=== PATIENT | male | born 1940 | race Caucasian/White ===

== ENCOUNTER 2017-07-03 07:14 | Inpatient (IN) | payer OTHER ==
[2017-07-03] VITALS (12 sets, daily range): BP systolic 113–135; BP diastolic 54–92
[~2017-07-03] VITALS: Ht 185.4 cm; Wt 88.0 kg
[~2017-07-03 07:14] MED LIST: ALLOPURINOL100 MG PO; BENTYL20 MG PO; CANASA1000 MG RC; CIPRO500 MG PO; COUMADIN3 MG PO; DIGOXIN125 MCG PO; FERROUS SULFAT325 MG PO; FINASTERIDE5 MG PO; FLAGYL250 MG PO; FLAGYL500 MG PO; FLOMAX0.4 MG PO; FUROSEMIDE20 MG PO; HUMIRA40 MG/0.8 SQ; LEVOXYL112 MCG; LOVENOX100 MG/ML SC; PENTASA500 MG PO; PREDNISONE20 MG PO; PROPRANOLOL HCL10 MG PO; PROTONIX20 MG PO; QUESTRAN PACKET4 GM PO; SIMVASTATIN20 MG PO; VANCOCIN HCL250 MG PO
[2017-07-03] MEDS ORDERED: SODIUM CHLORIDE 0.9% 500ML 500 ML IV STA ×2 (07:28→08:26)
[2017-07-03] MEDS ORDERED: ONDANSETRON HCL INJ 2 MG/ML VIAL IV STA (07:28)
[2017-07-03] MEDS ORDERED: DIATRIZOATE MEGL/DIATRIZOA SOD 30 ML BTL PO ONE (07:49)
[2017-07-03 08:24] LABS: BASOPHILS # (AUTO) 0.1 (0.0-0.1); BASOPHILS % 0.2 % (0.0-1.0); HEMATOCRIT 38.7 % (38.2-49.6); HEMOGLOBIN 13.2 g/dL (14.0-18.0); LYMPHOCYTES # (AUTO) 1.4 (1.0-3.2); LYMPHOCYTES % 3.5 % (18.0-39.1); MEAN CORPUSCULAR HEMOGLOBIN 29.8 pg (28-32); MEAN CORPUSCULAR HGB CONC 34.1 g/dL (31-35); MEAN CORPUSCULAR VOLUME 87.4 fL (81-99); MONOCYTES # (AUTO) 1.8 (0.2-0.8); MONOCYTES % 4.5 % (4.4-11.3); NEUTROPHILS # (AUTO) 35.6 (2.1-6.9); NEUTROPHILS % 89.4 % (38.7-80.0); PLATELET COUNT 180 x10e3/uL (140-360); RED BLOOD COUNT 4.43 x10e6/uL (4.3-5.7); RED CELL DISTRIBUTION WIDTH 18.1 % (11.7-14.4)
--- NOTE | 2017-07-03 08:32 | Diagnostic Imaging Report ---
PROCEDURE: CHEST SINGLE (PORTABLE) COMPARISON: None. INDICATIONS: ABDOMINAL PAIN FINDINGS: LUNGS: No consolidations or edema. Minimal bibasilar atelectasis. PLEURA: No effusions or pneumothorax. HEART \T\ MEDIASTINUM: The heart is within normal size-limits. Prominence of the aortic knob. Sternotomy wire sutures with a prosthetic aortic valve. BONES \T\ SOFT TISSUES: No acute findings. CONCLUSION: No acute thoracic abnormality. Abraham Rand D.O. Dictated by: Abraham Rand D.O. on 07/03/2017 at 8:39 Electronically approved by: Abraham Rnad D.O. on 07/03/2017 at 8:39
[2017-07-03 08:41] LABS: INR 1.54; PROTHROMBIN TIME 19.3 seconds (11.9-14.5)
[2017-07-03 08:42] LABS: PARTIAL THROMBOPLASTIN TIME 52.5 seconds (23.8-35.5)
[2017-07-03] MEDS ORDERED: LEVOFLOXACIN 750MG/D5W 150ML 150 ML IV STA (08:42)
[2017-07-03] MEDS ORDERED: METRONIDAZOLE 500MG/NS 100ML 100 ML IV STA (08:42)
--- NOTE | 2017-07-03 08:56 | Diagnostic Imaging Report ---
PROCEDURE: CT ABDOMEN AND PELVIS WITHOUT CONTRAST TECHNIQUE: The abdomen and pelvis were scanned utilizing a multidetector helical scanner from the diaphragm to the lesser trochanter without IV or oral contrast material. Coronal and sagittal multiplanar reformations were obtained. DLP: 649.5 mGy*cm COMPARISON: [facility], CT, CT ABDOMEN/PELVIS , 05/25/2015, 14:31. INDICATIONS: ABDOMEN PAIN, NAUSEA, VOMITING FINDINGS: ABSENCE OF INTRAVENOUS CONTRAST DECREASES SENSITIVITY FOR DETECTION OF FOCAL LESIONS AND VASCULAR PATHOLOGY. LOWER THORAX: Prosthetic aortic valve. Bibasilar atelectasis. HEPATOBILIARY: No focal hepatic lesions. No biliary ductal dilatation. Single calcified 1 cm gallstone. SPLEEN: No splenomegaly. PANCREAS: No focal masses or ductal dilatation. ADRENALS: No adrenal nodules. KIDNEYS/URETERS: No hydronephrosis or solid mass lesions. There are 3 tiny nonobstructing punctate right renal stones. PELVIC ORGANS/BLADDER: Prostate calcification. PERITONEUM / RETROPERITONEUM: No free air or fluid. LYMPH NODES: No lymphadenopathy. VESSELS: Aneurysmal dilatation of the distal infrarenal abdominal aorta measuring 4 cm (not significantly changed compared to the prior study). GI TRACT: Right lower quadrant ostomy with findings of a total colectomy. Sutures around a rectal stump. Dilated loops of small bowel. BONES AND SOFT TISSUES: Degenerative changes of the spine. Chronic compression deformity of L1. IMPRESSION: 1. Dilated small bowel compatible with a small bowel obstruction 2. Single calcified gallstone. 3. Nonobstructing tiny right renal stones. Abraham Rand D.O. Dictated by: Abraham Rand D.O. on 07/03/2017 at 9:03 Electronically approved by: Abraham Rand D.O. on 07/03/2017 at 9:03
[2017-07-03] MEDS ORDERED: SODIUM CHLORIDE 0.9% 1000ML 1,000 ML IV SCH (09:16)
[2017-07-03] MEDS ORDERED: VANCOMYCIN 1GM/NS 250 ML 250 ML IV STA (09:23)
[2017-07-03 09:30] LABS: POTASSIUM 4.9 mmol/L (3.5-5.1)
[2017-07-03 09:31] LABS: ALBUMIN 3.2 g/dL (3.5-5.0); ALBUMIN/GLOBULIN RATIO 0.7 (0.8-2.0); ANION GAP 20.9 mmol/L (8-16); CALCIUM 9.9 mg/dL (8.4-10.2); CREATININE, SERUM 2.68 mg/dL (0.72-1.25); MAGNESIUM 2.2 MG/DL (1.3-2.1)
[2017-07-03 09:35] LABS: CREATINE KINASE MB 3.7 ng/mL (0.00-5.00); TROPONIN I 0.025 ng/mL (0-0.300)
[2017-07-03 10:15] LABS: B-TYPE NATRIURETIC PEPTIDE2 31.3 pg/mL (0-100)
[2017-07-03 11:23] LABS: LYMPHOCYTES % (MANUAL) 1 % (19-48); MONOCYTES % (MANUAL) 1 % (3.4-9.0); NEUTROPHILS % (MANUAL) 96 % (40-74)
[2017-07-03 11:24] LABS: PLATELET ESTIMATE SLIGHTLY DECREASED; PLATELET MORPHOLOGY COMMENT NORMAL; RBC MORPHOLOGY COMMENT NORMAL
[2017-07-03] MEDS ORDERED: VANCOMYCIN 1GM/NS 250 ML 250 ML IV ONE (14:45)
[2017-07-03] MEDS: ONDANSETRON HCL INJ 2 MG/ML VIAL IV PRN (15:09)
[2017-07-03] MEDS: SODIUM CHLORIDE 0.9% 1000ML 1,000 ML IV SCH (16:49)
[2017-07-03 16:59] LABS: CREATINE KINASE MB 3.7 ng/mL (0.00-5.00); TROPONIN I 0.023 ng/mL (0-0.300)
--- NOTE | 2017-07-03 19:22 | Consultation ---
DATE OF CONSULTATION: July 03, 2017 CHIEF COMPLAINT: Abdominal pain. HISTORY OF PRESENT ILLNESS: The patient is a 76-year-old old male with a several day history of abdominal pain in the lower abdomen with intermittent vomiting without blood. The patient had history of subtotal colectomy for ulcerative with an ileostomy and he has noted decreased output from the ileostomy. No fever or chills. REVIEW OF SYSTEMS: No current chest pain or shortness of breath. PAST MEDICAL HISTORY: Significant for history ulcerative colitis, hypertension, hyperlipidemia, hypothyroidism, chronic renal insufficiency, past alcohol abuse. PAST SURGICAL HISTORY: Positive for mechanical aortic valve replacement and aortic aneurysm., ascending repair. ALLERGIES: IV CONTRAST, IODINE AND PENICILLIN. PHYSICAL EXAMINATION VITAL SIGNS: Stable. He is afebrile. He is mildly tachycardiac. Heart rate of 120. GENERAL: Patient awake, alert and in no apparent distress. HEENT: Sclerae anicteric. NECK: Supple. LUNGS: Clear. HEART: Regular rhythm with no murmurs. ABDOMEN: Mildly distended but compressible with mild guarding in the ostomy area in the right lower quadrant. No rebound tenderness. EXTREMITIES: Without cyanosis or edema. White cell count is 39,000. Hemoglobin is 13. Creatinine is 2.6 with lactic acid of 19. CT of the abdomen showed dilated loops of small bowel consistent with obstruction. Gallstone noted without gallbladder distention or wall thickening. ASSESSMENT: Abdominal pain with decreased ileostomy output with distention of the bowel on CT scan suggestive of bowel obstruction. Repeated attempt at nasogastric tube decompression, unsuccessful due to nasal blockage. PLAN: Serial abdominal x-ray and exam. IV hydration. Keep n.p.o. May attempt Fleet enema through the ileostomy to promote bowel activity. Thank you for the consultation. Job#: [id number]
[2017-07-03] MEDS ORDERED: ALBUTEROL0.63 MG/3 INH (19:44)
[2017-07-03] MEDS ORDERED: LOPERAMIDE2 MG PO (20:04)
[2017-07-03] MEDS ORDERED: SPIRIVA18 MCG INH (20:04)
[2017-07-03] MEDS ORDERED: WARFARIN SODIUM1 MG PO (20:04)
[2017-07-03] MEDS ORDERED: OYSTER SHELL C1 EACH PO (20:04)
[2017-07-03] MEDS ORDERED: POLYETHYLENE GL17 GM PO (20:04)
[2017-07-03] MEDS ORDERED: METOPROLOL SUCC25 MG PO (20:04)
[2017-07-03] MEDS ORDERED: FERROUS GLUCON324 M1 PO (20:04)
[2017-07-03] MEDS ORDERED: TRIAMCINOLONE A15 G1 TOP (20:04)
[2017-07-03] MEDS ORDERED: ACIDOPHILUS1 EAC1 PO (20:04)
[2017-07-03] MEDS ORDERED: HYDROXYZINE HCL25 MG PO (20:04)
[2017-07-03] MEDS ORDERED: ZOFRAN ODT4 MG PO (20:04)
[2017-07-03] MEDS ORDERED: LORADAMED10 MG PO (20:04)
[2017-07-03] MEDS ORDERED: THIAMINE HCL100 MG PO (20:04)
[2017-07-03] MEDS ORDERED: SYMBICORT 16010.2 GM INH (20:04)
[2017-07-04] VITALS (34 sets, daily range): BP systolic 117–142; BP diastolic 60–98
[2017-07-04] MEDS: CEFTRIAXONE SOD 1 GM in WATER STERILE 10ML VIAL 10 ML IV SCH ×2 (01:18→23:47)
[2017-07-04] MEDS: METRONIDAZOLE 500MG/NS 100ML 100 ML IV SCH ×4 (01:18→21:40)
[2017-07-04] MEDS: SODIUM CHLORIDE 0.9% 1000ML 1,000 ML IV SCH ×3 (01:18→21:40)
[2017-07-04] MEDS: VANCOMYCIN 250MG/5ML ORAL SOLN PO SCH ×4 (01:18→21:40)
[2017-07-04] MEDS: ONDANSETRON HCL INJ 2 MG/ML VIAL IV PRN (05:16)
[2017-07-04] MEDS: LEVOTHYROXINE SODIUM 112 MCG TAB PO SCH (05:16)
[2017-07-04 06:10] LABS: BILIRUBIN,URINE NEGATIVE (NEGATIVE); KETONES,URINE NEGATIVE (NEGATIVE); LEUKOCYTE ESTERASE ,URINE 2+ (NEGATIVE); NITRITE,URINE NEGATIVE (NEGATIVE); URINE UROBILINOGEN 0.2 mg/dL (0.2 - 1)
[2017-07-04 06:11] LABS: BASOPHILS # (AUTO) 0.1 (0.0-0.1); BASOPHILS % 0.2 % (0.0-1.0); LYMPHOCYTES # (AUTO) 1.4 (1.0-3.2); LYMPHOCYTES % 4.6 % (18.0-39.1); MEAN CORPUSCULAR HEMOGLOBIN 30.2 pg (28-32); MEAN CORPUSCULAR HGB CONC 33.3 g/dL (31-35); MEAN CORPUSCULAR VOLUME 90.5 fL (81-99); MONOCYTES # (AUTO) 1.3 (0.2-0.8); MONOCYTES % 4.3 % (4.4-11.3); NEUTROPHILS % 89.1 % (38.7-80.0); PLATELET COUNT 161 x10e3/uL (140-360); RED BLOOD COUNT 3.98 x10e6/uL (4.3-5.7); RED CELL DISTRIBUTION WIDTH 17.8 % (11.7-14.4)
--- NOTE | 2017-07-04 06:12 | Diagnostic Imaging Report ---
EXAM: ABDOMEN-1VIEW (KUB) DATE: 07/04/2017 7:00 AM Time stamp on exam: 5:26 AM INDICATION: Small bowel obstruction COMPARISON: CT of the abdomen and pelvis on 07/03/2017 FINDINGS: LINES/TUBES: None BOWEL PATTERN: Multiple dilated loops of bowel are noted throughout the mid abdomen left greater than right SOFT TISSUES: Abnormal calcification in the right upper quadrant may be gallstones LUNG BASES: Lung bases are clear BONES: Degenerative changes of the thoracolumbar spine. IMPRESSION: Findings are suspicious for ileus versus developing small bowel obstruction. Signed by: Dr. Quoc Aguilar M.D. on 07/04/2017 6:08 AM
[2017-07-04 06:13] LABS: CLARITY,URINE CLOUDY (CLEAR); COLOR,URINE YELLOW (YELLOW); PROTEIN,URINE DIPSTICK 1+ (NEGATIVE)
[2017-07-04 06:23] LABS: BACTERIA,URINE FEW /HPF; EPITHELIAL CELLS,URINE RARE /LPF; WBC,URINE (MAN) 21-50 /HPF (0-5)
[2017-07-04 06:35] LABS: ANION GAP 14.9 mmol/L (8-16); CALCIUM 9.2 mg/dL (8.4-10.2); CREATININE, SERUM 1.85 mg/dL (0.72-1.25); POTASSIUM 4.9 mmol/L (3.5-5.1)
[2017-07-04 06:55] LABS: CREATINE KINASE MB 3.6 ng/mL (0.00-5.00); THYROID STIMULATING HORMONE 2.621 uIU/mL (0.350-4.940); TROPONIN I 0.028 ng/mL (0-0.300)
[2017-07-04 07:27] LABS: MONOCYTES % (MANUAL) 1 % (3.4-9.0); NEUTROPHILS % (MANUAL) 95 % (40-74)
[2017-07-04 07:28] LABS: PLATELET ESTIMATE SLIGHTLY DECREASED; PLATELET MORPHOLOGY COMMENT NORMAL; RBC MORPHOLOGY COMMENT NORMAL
[2017-07-04] MEDS ORDERED: ENOXAPARIN SOD INJ 40 MG/0.4 ML SYR SC SCH (09:15)
[2017-07-04] MEDS: METOPROLOL SUCCINATE 25 MG TAB XL PO SCH (09:22)
--- NOTE | 2017-07-04 09:39 | Progress Note ---
DATE: July 04, 2017 SUBJECTIVE: NG was placed by Dr. Gruber today. Patient denies any significant abdominal pain. He is more alert, awake and coherent this morning. REVIEW OF SYSTEMS GENERAL: No fever or chills. CV: Denies any chest pain or palpitations. RESPIRATORY: Denies any cough or expectoration. MEDICATIONS: MAR reviewed. PHYSICAL EXAMINATION VITAL SIGNS: Temperature 97.3, pulse 112-113, respirations 18, blood pressure 134/86 to 126/91, oxygen saturation 96% on 4 L of nasal cannula. GENERAL: Not in any apparent distress. More alert and awake today. HEENT: Moist mucous membranes. Anicteric sclerae. CV: S1 and S2 regular with a mechanical mitral valve click. LUNGS: Bilaterally grossly clear. ABDOMEN: Soft. No air or any fecal fluid in the ileostomy. Tinkling scattered bowel sounds. No rebound, rigidity or guarding. LABS: WBC has come down to 30.36, hemoglobin 12, hematocrit 36, and platelet count 161,000. Urinalysis is positive for UTI. Abdominal x-ray done today prior to NG placement showed dilated small bowel loop concerning for small bowel obstruction versus ileus. IMPRESSION 1. Small-bowel obstruction. 2. Urinalysis is positive for urinary tract infection: Urine culture as well as blood culture are pending. The patient is on intravenous ceftriaxone. I spoke to the Dr. Gruber. He is not planning to operate on this patient. Therefore, the patient will be managed conservatively for small-bowel obstruction. If there is no plan of operating on this patient, then warfarin should be resumed. Given mechanical mitral valve, he is at high risk for thromboembolic phenomenon. Discussed with Dr. Montalvo. Job#: [id number] [place]
[2017-07-04] MEDS: FINASTERIDE 5 MG TAB PO SCH (09:52)
[2017-07-04] MEDS: ENOXAPARIN INJ 80 MG/0.8 ML SYR SC SCH ×2 (09:52→21:40)
[2017-07-04] MEDS: FUROSEMIDE 20 MG TAB PO SCH ×2 (09:52→17:33)
[2017-07-04] MEDS: ALLOPURINOL 100 MG TAB PO SCH (09:52)
[2017-07-04] MEDS: LORATADINE 10 MG TAB PO SCH (09:52)
[2017-07-04] MEDS: THIAMINE HCL 100 MG TAB PO SCH (09:52)
--- NOTE | 2017-07-04 10:30 | Diagnostic Imaging Report ---
PROCEDURE:X-RAY ABDOMEN - KUB COMPARISON:Abdomen one view 07/04/2017. INDICATIONS:NG TUBE PLACEMENT FINDINGS: Limited examination. Enteric feeding catheter is present with the tip projecting over the expected region of the mid gastric body. Multiple partially visualized distended loops of small bowel are present. CONCLUSION: Small bowel obstruction. Limited evaluation. Dictated by: Abilio Brasher M.D. on 07/04/2017 at 10:37 Electronically approved by: Abilio Brasher M.D. on 07/04/2017 at 10:37
--- NOTE | 2017-07-04 10:54 | Consultation ---
DATE OF CONSULTATION: July 03, 2017 GASTROENTEROLOGY CONSULT REASON FOR CONSULT: Small-bowel obstruction. HISTORY OF PRESENTING ILLNESS: A 76-year-old male from [facility], who is presently very confused and delirious. Therefore, I cannot derive any history directly from the patient. Most of my information is derived from the medical chart, as well as interaction with the nurse at the bedside. GI has been consulted to evaluate him for small-bowel obstruction. Patient presented with abdominal pain. He had a total colectomy for ulcerative colitis, which was initially diagnosed many years ago. He has an ileostomy. CT scan done in the emergency room showed dilated small bowel loops compatible with a small-bowel obstruction. His blood work also revealed leukocytosis with a left shift. White count was noted at 39.81 with 89% of neutrophils. He subsequently got admitted through the emergency room directly into the ICU for underlying sepsis, as well as small-bowel obstruction. REVIEW OF SYSTEMS: Unobtainable. Per the chart, symptomatology is limited to GI system. PAST MEDICAL HISTORY: History of ritter ulcerative colitis, hypertension, hyperlipidemia, hypothyroidism, CKD, past alcohol use. PAST SURGICAL HISTORY: Ascending aortic aneurysm, mechanical aortic valve. FAMILY HISTORY: Noncontributory. SOCIAL HISTORY: No smoking, alcohol or any illicit drug use. He lives in [facility]. ALLERGIES: IV CONTRAST, IODINE AND PENICILLIN. MEDICATIONS: Inpatient medications reviewed as per MAR. Patient was on warfarin at the group home. PHYSICAL EXAMINATION VITAL SIGNS: Temperature 97.3, pulse 112 to 108, respirations 18, blood pressure 134/86, oxygen saturation 96% on room air. GENERAL: Delirious, confused and lethargic and incoherent. HEENT: Moist mucous membranes. Anicteric sclerae. No neck or axillary adenopathy. CV: S1 and S2 regular with a mechanical mitral valve click. LUNGS: Bilaterally grossly clear. ABDOMEN: Soft. Mild upper quadrant distention. No rebound, rigidity or guarding. Bowel sounds are slightly hyperactive. EXTREMITIES: Warm. No leg edema. LABS: WBC 39.81, hemoglobin 13.2, hematocrit 38.7, MCV 87.4, and platelet count 180,000. Sodium 136, potassium 4.9, chloride 104, bicarb 22, BUN 55, creatinine 1.85. LFTs normal. Liver function tests normal. CT of the abdomen and pelvis without IV or oral contrast showed dilated small bowel compatible with a small-bowel obstruction. Single calcified gallstone. Nonobstructing tiny renal stone. No free air or fluid. IMPRESSION 1. Small-bowel obstruction in a patient with pancolectomy secondary to ulcerative colitis. 2. Leukocytosis due to underlying sepsis. PLAN: Attempt was made to put in an NG tube in the emergency room and failed. Surgery has been consulted. He will be kept n.p.o. IV fluids. Serial abdominal exam. Recommend putting NG tube by IR under fluoroscopy. If NG tube gets placed, then it should be put to low to intermittent wall suction. Regarding sepsis, blood culture has been drawn. Chest x-ray negative. However, no urinalysis done. Therefore, recommend to do a straight cath to obtain urine sample. Patient is currently getting IV metronidazole, IV vancomycin along with IV ceftriaxone. If urinalysis positive for UTI, then recommend to discontinue vancomycin, as well as metronidazole. I thank Dr. Montalvo for allowing me to participate in the care of this patient. Job#: [id number] [place]
[2017-07-04] MEDS ORDERED: TAMSULOSIN HCL 0.4 MG CAP PO SCH (16:30)
[2017-07-04] MEDS: TIOTROPIUM 18 MCG INH POWDER INH SCH ×2 (17:33)
[2017-07-04] MEDS ORDERED: ENOXAPARIN INJ 80 MG/0.8 ML SYR SC SCH (21:00)
[2017-07-05] VITALS (31 sets, daily range): BP systolic 109–151; BP diastolic 66–88
[2017-07-05 06:01] LABS: BASOPHILS % 0.2 % (0.0-1.0); EOSINOPHILS % 0.1 % (0.0-6.0); HEMATOCRIT 33.1 % (38.2-49.6); HEMOGLOBIN 11.1 g/dL (14.0-18.0); LYMPHOCYTES # (AUTO) 1.2 (1.0-3.2); LYMPHOCYTES % 6.8 % (18.0-39.1); MEAN CORPUSCULAR HGB CONC 33.5 g/dL (31-35); MEAN CORPUSCULAR VOLUME 89.5 fL (81-99); MONOCYTES % 5.6 % (4.4-11.3); NEUTROPHILS % 85.9 % (38.7-80.0); PLATELET COUNT 142 x10e3/uL (140-360); RED CELL DISTRIBUTION WIDTH 17.5 % (11.7-14.4)
[2017-07-05] MEDS: VANCOMYCIN 250MG/5ML ORAL SOLN PO SCH ×2 (06:13→14:00)
[2017-07-05] MEDS: METRONIDAZOLE 500MG/NS 100ML 100 ML IV SCH ×2 (06:13→14:00)
[2017-07-05] MEDS: LEVOTHYROXINE SODIUM 112 MCG TAB PO SCH (06:13)
[2017-07-05 06:20] LABS: ANION GAP 12.5 mmol/L (8-16); BLOOD UREA NITROGEN 42 mg/dL (7-26); BUN/CREATININE RATIO 39 (6-25); CALCIUM 8.5 mg/dL (8.4-10.2); CARBON DIOXIDE 19 mmol/L (22-29); CHLORIDE 111 mmol/L (98-107); CREATININE, SERUM 1.09 mg/dL (0.72-1.25); EST GLOMERULAR FILTRATION RATE > 60 ML/MIN (60-); GLUCOSE 90 mg/dL (74-118); POTASSIUM 3.5 mmol/L (3.5-5.1); SODIUM 139 mmol/L (136-145)
--- NOTE | 2017-07-05 07:11 | Diagnostic Imaging Report ---
JERRY , July 05, 2017 Clinical history: Small bowel obstruction Technique: AP view abdomen Comparison: CT abdomen July 03 2017; abdomen 1 view July 04, 2017 Findings: See impression. Impression: 1. No interval change in diffuse small bowel distention consistent with ileus/obstruction. 2. Nasogastric tube tip at the gastric antrum or 1st portion of the duodenum. This report was generated with voice-recognition technology. Errors in facilities painter can occur. Please interpret accordingly and contact a radiologist if there are any questions regarding the report. Signed by: Dr. Marbin Turk M.D. on 07/05/2017 7:07 AM
[2017-07-05] MEDS: SODIUM CHLORIDE 0.9% 1000ML 1,000 ML IV SCH (09:39)
[2017-07-05] MEDS: LORATADINE 10 MG TAB PO SCH (09:39)
[2017-07-05] MEDS: FUROSEMIDE 20 MG TAB PO SCH (09:39)
[2017-07-05] MEDS: FINASTERIDE 5 MG TAB PO SCH (09:40)
[2017-07-05] MEDS: METOPROLOL SUCCINATE 25 MG TAB XL PO SCH (09:40)
[2017-07-05] MEDS: THIAMINE HCL 100 MG TAB PO SCH (09:40)
[2017-07-05] MEDS: ALLOPURINOL 100 MG TAB PO SCH (09:40)
[2017-07-05] MEDS: ENOXAPARIN INJ 80 MG/0.8 ML SYR SC SCH ×2 (09:41→21:09)
--- NOTE | 2017-07-05 18:52 | Progress Note ---
DATE: July 05, 2017 SUBJECTIVE: The patient reports no abdominal pain. No nausea, vomiting. NG tube is draining bile. REVIEW OF SYSTEMS: GENERAL: No fever or chills. CVS: No chest pain or palpitations. RESPIRATORY: No cough or expectoration. MEDICATIONS: Reviewed, MAR. The patient is getting intravenous metronidazole, ceftriaxone, and oral vancomycin. OBJECTIVE VITAL SIGNS: Temperature 96.5, pulse ranging from 110-114, respirations 16, blood pressure 132/83 to 146/87. Oxygen saturation 92% on room air. GENERAL: Lethargic, drowsy. HEENT: Moist mucous membranes. Anicteric sclerae. CVS: S1 and S2, regular. With prosthetic mitral valve click. LUNGS: Bilaterally grossly clear. ABDOMEN: Mild gaseous distention. Ileostomy bag with minimal gas and very small amount of fecal fluid. Tingling bowel sounds. No other palpable masses or hernia. LABORATORY DATA: WBC has come down to 17.47, hemoglobin 11.1, hematocrit 33.1, platelet count 142, sodium 139, potassium 3.5, chloride 111, bicarb 19, BUN 42, creatinine 1.09. Urine culture pending. Blood culture no growth in 48 hours. Abdominal x-ray done today showed diffuse small bowel distention consistent with ileus/obstruction. NG tube tip at the gastric antrum or the 1st portion of the duodenum. IMPRESSION: 1. Small bowel obstruction continues to persist. 2. Urinary tract infection, urine culture is pending. The patient is on ceftriaxone. White count is down. PLAN: Surgery is following the patient. Will continue serial abdominal x-ray. Taking the liberty to discontinue metronidazole as well as oral vancomycin. I do not think that we are dealing here with any C. difficile. Follow the urine culture and adjust the antibiotic accordingly. The patient is being given Lovenox for prosthetic mitral valve in anticipation that in case the patient gets surgery then Lovenox will have to be held for 12 hours. The patient was on warfarin at home. The last INR check was 1.54 on 07/03/17. Job#: [id number] [place] MTDD
[2017-07-05] MEDS: POTASSIUM CHL 40 MEQ in DEXTROSE 5%/0.45% SOD CHL 1,000 ML IV SCH (19:30)
[2017-07-05] MEDS: TIOTROPIUM 18 MCG INH POWDER INH SCH (21:08)
[2017-07-06] VITALS (41 sets, daily range): BP systolic 108–143; BP diastolic 57–84
[2017-07-06] MEDS: CEFTRIAXONE SOD 1 GM in WATER STERILE 10ML VIAL 10 ML IV SCH (01:45)
--- NOTE | 2017-07-06 04:27 | Diagnostic Imaging Report ---
EXAM: ABDOMEN-1VIEW (KUB) DATE: 07/06/2017 7:00 AM Time stamp on exam: 3:34 AM INDICATION: Small bowel obstruction COMPARISON: 07/05/2017 FINDINGS: LINES/TUBES: NG tube is stable in good position BOWEL PATTERN: Persistent dilatation of multiple small bowel loops throughout the abdomen measuring up to 4.6 cm in diameter SOFT TISSUES: Right upper quadrant calcification compatible with gallstone. LUNG BASES: Lung bases are clear. BONES: No acute findings. IMPRESSION: 1. Persistent dilatation of the small bowel loops in keeping with small bowel obstruction Signed by: Dr. Quoc Aguilar M.D. on 07/06/2017 4:23 AM
[2017-07-06] MEDS: POTASSIUM CHL 40 MEQ in DEXTROSE 5%/0.45% SOD CHL 1,000 ML IV SCH ×2 (04:48→15:14)
[2017-07-06 06:06] LABS: BASOPHILS # (AUTO) 0.1 (0.0-0.1); BASOPHILS % 0.4 % (0.0-1.0); EOSINOPHILS % 0.3 % (0.0-6.0); HEMATOCRIT 34.6 % (38.2-49.6); HEMOGLOBIN 11.2 g/dL (14.0-18.0); LYMPHOCYTES # (AUTO) 1.4 (1.0-3.2); LYMPHOCYTES % 11.7 % (18.0-39.1); MEAN CORPUSCULAR HEMOGLOBIN 29.6 pg (28-32); MEAN CORPUSCULAR HGB CONC 32.4 g/dL (31-35); MEAN CORPUSCULAR VOLUME 91.3 fL (81-99); MONOCYTES % 8.2 % (4.4-11.3); NEUTROPHILS # (AUTO) 9.3 (2.1-6.9); NEUTROPHILS % 77.1 % (38.7-80.0); PLATELET COUNT 136 x10e3/uL (140-360); RED BLOOD COUNT 3.79 x10e6/uL (4.3-5.7); RED CELL DISTRIBUTION WIDTH 17.7 % (11.7-14.4)
[2017-07-06 06:25] LABS: ANION GAP 10.7 mmol/L (8-16); BLOOD UREA NITROGEN 32 mg/dL (7-26); BUN/CREATININE RATIO 30 (6-25); CALCIUM 8.6 mg/dL (8.4-10.2); CARBON DIOXIDE 24 mmol/L (22-29); CHLORIDE 111 mmol/L (98-107); CREATININE, SERUM 1.08 mg/dL (0.72-1.25); EST GLOMERULAR FILTRATION RATE > 60 ML/MIN (60-); GLUCOSE 119 mg/dL (74-118); MAGNESIUM 1.6 MG/DL (1.3-2.1); PHOSPHORUS 1.6 MG/DL (2.3-4.7); POTASSIUM 3.7 mmol/L (3.5-5.1); SODIUM 142 mmol/L (136-145)
[2017-07-06] MEDS: THIAMINE HCL INJ 100 MG/ML 2ML VIAL IV SCH (09:00)
[2017-07-06] MEDS: ENOXAPARIN INJ 80 MG/0.8 ML SYR SC SCH ×2 (09:00→21:45)
[2017-07-06] MEDS: LEVOTHYROXINE SODIUM 100 MCG/VIAL IV SCH (09:00)
[2017-07-06] MEDS: TIOTROPIUM 18 MCG INH POWDER INH SCH (09:00)
[2017-07-06] MEDS ORDERED: MAGNESIUM SULFATE 2GM/50ML 50 ML IV ONE ×3 (10:00→16:00)
[2017-07-06] MEDS ORDERED: POTASSIUM PHOSPHATE 20 MM in SODIUM CHLORIDE 0.9% 250ML 250 ML IV ONE (10:30)
[2017-07-06 12:24] LABS: EOSINOPHILS % (MANUAL) 1 % (0-7); LYMPHOCYTES % (MANUAL) 15 % (19-48); METAMYELOCYTES % (MANUAL) 1 % (0-0); MONOCYTES % (MANUAL) 5 % (3.4-9.0); NEUTROPHILS % (MANUAL) 78 % (40-74)
[2017-07-06 12:26] LABS: PLATELET ESTIMATE SLIGHTLY DECREASED; PLATELET MORPHOLOGY COMMENT FEW LARGE
[2017-07-06 12:28] LABS: RBC MORPHOLOGY COMMENT NORMAL
[2017-07-06] MEDS: METOPROLOL TARTRATE INJ 1 MG/ML VIAL IV SCH ×2 (14:00→21:45)
[2017-07-06] MEDS: MORPHINE SULFATE 2 MG/ML SYR IV PRN ×2 (23:00→23:15)
[2017-07-07] VITALS (24 sets, daily range): BP systolic 104–144; BP diastolic 60–78
[2017-07-07] MEDS: CEFTRIAXONE SOD 1 GM in WATER STERILE 10ML VIAL 10 ML IV SCH (02:10)
[2017-07-07] MEDS: POTASSIUM CHL 40 MEQ in DEXTROSE 5%/0.45% SOD CHL 1,000 ML IV SCH ×2 (06:08→16:30)
[2017-07-07] MEDS: METOPROLOL TARTRATE INJ 1 MG/ML VIAL IV SCH ×3 (06:09→22:00)
[2017-07-07] MEDS: MORPHINE SULFATE 2 MG/ML SYR IV PRN ×3 (06:10→23:30)
--- NOTE | 2017-07-07 06:25 | Diagnostic Imaging Report ---
EXAM: ABDOMEN-1VIEW (KUB) DATE: 07/07/2017 6:00 AM Time stamp on exam: 5:27 AM INDICATION: Small bowel obstruction COMPARISON: 07/06/2017 FINDINGS: LINES/TUBES: None BOWEL PATTERN: Interval improvement in extension and diameter of the small bowel dilatation. Findings are still compatible with small bowel obstruction/ileus SOFT TISSUES: No abnormal calcifications. No mass effect. LUNG BASES: Not included BONES: No acute findings. IMPRESSION: Mild interval improvement in small bowel dilatation. Still compatible with small bowel obstruction/ileus Signed by: Dr. Quoc Aguilar M.D. on 07/07/2017 6:22 AM
[2017-07-07 06:30] LABS: BASOPHILS # (AUTO) 0.1 (0.0-0.1); BASOPHILS % 0.4 % (0.0-1.0); EOSINOPHILS # (AUTO) 0.1 (0.0-0.4); EOSINOPHILS % 1.1 % (0.0-6.0); HEMATOCRIT 35.2 % (38.2-49.6); HEMOGLOBIN 11.1 g/dL (14.0-18.0); LYMPHOCYTES # (AUTO) 1.9 (1.0-3.2); LYMPHOCYTES % 16.4 % (18.0-39.1); MEAN CORPUSCULAR HEMOGLOBIN 29.2 pg (28-32); MEAN CORPUSCULAR HGB CONC 31.5 g/dL (31-35); MEAN CORPUSCULAR VOLUME 92.6 fL (81-99); MONOCYTES # (AUTO) 0.8 (0.2-0.8); MONOCYTES % 6.6 % (4.4-11.3); NEUTROPHILS # (AUTO) 8.3 (2.1-6.9); NEUTROPHILS % 72.4 % (38.7-80.0); PLATELET COUNT 149 x10e3/uL (140-360); RED CELL DISTRIBUTION WIDTH 17.5 % (11.7-14.4)
[2017-07-07 07:07] LABS: ANION GAP 10.9 mmol/L (8-16); BLOOD UREA NITROGEN 22 mg/dL (7-26); BUN/CREATININE RATIO 23 (6-25); CALCIUM 8.6 mg/dL (8.4-10.2); CARBON DIOXIDE 26 mmol/L (22-29); CHLORIDE 110 mmol/L (98-107); CREATININE, SERUM 0.97 mg/dL (0.72-1.25); EST GLOMERULAR FILTRATION RATE > 60 ML/MIN (60-); GLUCOSE 123 mg/dL (74-118); POTASSIUM 3.9 mmol/L (3.5-5.1); SODIUM 143 mmol/L (136-145)
[2017-07-07] MEDS: ENOXAPARIN INJ 80 MG/0.8 ML SYR SC SCH ×2 (09:00→22:27)
[2017-07-07] MEDS: THIAMINE HCL INJ 100 MG/ML 2ML VIAL IV SCH (09:00)
[2017-07-07] MEDS: LEVOTHYROXINE SODIUM 100 MCG/VIAL IV SCH (09:00)
[2017-07-07 10:25] LABS: BAND NEUTROPHILS % (MANUAL) 1 %; EOSINOPHILS % (MANUAL) 2 % (0-7); LYMPHOCYTES % (MANUAL) 18 % (19-48); MONOCYTES % (MANUAL) 7 % (3.4-9.0); NEUTROPHILS % (MANUAL) 72 % (40-74); RBC MORPHOLOGY COMMENT NORMAL
[2017-07-07 10:26] LABS: PLATELET ESTIMATE ADEQUATE; PLATELET MORPHOLOGY COMMENT NORMAL
[2017-07-07] MEDS: TIOTROPIUM 18 MCG INH POWDER INH SCH (11:20)
[2017-07-08] VITALS (20 sets, daily range): BP systolic 93–128; BP diastolic 61–83
[2017-07-08] MEDS: CEFTRIAXONE SOD 1 GM in WATER STERILE 10ML VIAL 10 ML IV SCH (00:17)
[2017-07-08] MEDS: POTASSIUM CHL 40 MEQ in DEXTROSE 5%/0.45% SOD CHL 1,000 ML IV SCH (00:48)
[2017-07-08] MEDS: MORPHINE SULFATE 2 MG/ML SYR IV PRN ×2 (04:12→07:18)
[2017-07-08] MEDS: METOPROLOL TARTRATE INJ 1 MG/ML VIAL IV SCH ×3 (06:00→21:34)
[2017-07-08 06:36] LABS: BASOPHILS % 0.3 % (0.0-1.0); EOSINOPHILS # (AUTO) 0.2 (0.0-0.4); EOSINOPHILS % 1.1 % (0.0-6.0); HEMATOCRIT 32.4 % (38.2-49.6); HEMOGLOBIN 10.3 g/dL (14.0-18.0); LYMPHOCYTES # (AUTO) 1.7 (1.0-3.2); LYMPHOCYTES % 12.1 % (18.0-39.1); MEAN CORPUSCULAR HEMOGLOBIN 29.3 pg (28-32); MEAN CORPUSCULAR HGB CONC 31.8 g/dL (31-35); MEAN CORPUSCULAR VOLUME 92.3 fL (81-99); MONOCYTES # (AUTO) 0.9 (0.2-0.8); MONOCYTES % 6.2 % (4.4-11.3); NEUTROPHILS # (AUTO) 11.1 (2.1-6.9); NEUTROPHILS % 77.8 % (38.7-80.0); PLATELET COUNT 149 x10e3/uL (140-360); RED BLOOD COUNT 3.51 x10e6/uL (4.3-5.7); RED CELL DISTRIBUTION WIDTH 17.3 % (11.7-14.4)
[2017-07-08 06:59] LABS: ANION GAP 8.5 mmol/L (8-16); BLOOD UREA NITROGEN 16 mg/dL (7-26); BUN/CREATININE RATIO 18 (6-25); CALCIUM 8.3 mg/dL (8.4-10.2); CARBON DIOXIDE 24 mmol/L (22-29); CHLORIDE 107 mmol/L (98-107); CREATININE, SERUM 0.88 mg/dL (0.72-1.25); EST GLOMERULAR FILTRATION RATE > 60 ML/MIN (60-); GLUCOSE 121 mg/dL (74-118); POTASSIUM 4.5 mmol/L (3.5-5.1); SODIUM 135 mmol/L (136-145)
[2017-07-08] MEDS: LEVOTHYROXINE SODIUM 100 MCG/VIAL IV SCH (09:00)
[2017-07-08] MEDS: TIOTROPIUM 18 MCG INH POWDER INH SCH (09:00)
[2017-07-08] MEDS: ENOXAPARIN INJ 80 MG/0.8 ML SYR SC SCH ×2 (09:32→21:36)
[2017-07-08] MEDS: THIAMINE HCL INJ 100 MG/ML 2ML VIAL IV SCH (09:32)
[2017-07-08] MEDS ORDERED: MORPHINE SULFATE 2 MG/ML SYR IV PRN (09:45)
[2017-07-08] MEDS: ONDANSETRON HCL INJ 2 MG/ML VIAL IV PRN (14:00)
[2017-07-08] MEDS: D5.45%NS/KCL 20MEQ 1,000 ML IV SCH ×2 (15:29→21:36)
[2017-07-09] VITALS (20 sets, daily range): BP systolic 75–120; BP diastolic 60–88
[2017-07-09] MEDS: CEFTRIAXONE SOD 1 GM in WATER STERILE 10ML VIAL 10 ML IV SCH (01:00)
--- NOTE | 2017-07-09 05:56 | Diagnostic Imaging Report ---
EXAM: ABDOMEN-1VIEW (KUB), portable supine DATE: 07/09/2017 5:00 AM Time stamp on exam: For 24 hours INDICATION: Obstruction COMPARISON: July 07, 2017 FINDINGS: Nasogastric tube terminates in expected location of the antrum of the stomach Persistent dilated loops of small bowel IMPRESSION: Persistent findings of small bowel obstruction versus ileus. Signed by: Dr. Elisa Cota M.D. on 07/09/2017 5:53 AM
[2017-07-09 05:57] LABS: BASOPHILS # (AUTO) 0.1 (0.0-0.1); BASOPHILS % 0.4 % (0.0-1.0); EOSINOPHILS # (AUTO) 0.1 (0.0-0.4); EOSINOPHILS % 0.8 % (0.0-6.0); HEMATOCRIT 34.2 % (38.2-49.6); HEMOGLOBIN 10.9 g/dL (14.0-18.0); LYMPHOCYTES # (AUTO) 1.8 (1.0-3.2); LYMPHOCYTES % 13.1 % (18.0-39.1); MEAN CORPUSCULAR HEMOGLOBIN 29.5 pg (28-32); MEAN CORPUSCULAR HGB CONC 31.9 g/dL (31-35); MEAN CORPUSCULAR VOLUME 92.4 fL (81-99); MONOCYTES % 7.6 % (4.4-11.3); NEUTROPHILS # (AUTO) 10.2 (2.1-6.9); NEUTROPHILS % 76.4 % (38.7-80.0); PLATELET COUNT 189 x10e3/uL (140-360); RED CELL DISTRIBUTION WIDTH 16.8 % (11.7-14.4)
[2017-07-09] MEDS: METOPROLOL TARTRATE INJ 1 MG/ML VIAL IV SCH ×3 (06:00→21:41)
[2017-07-09] MEDS: D5.45%NS/KCL 20MEQ 1,000 ML IV SCH ×2 (06:15→14:00)
[2017-07-09 06:17] LABS: ANION GAP 12.1 mmol/L (8-16); BLOOD UREA NITROGEN 17 mg/dL (7-26); BUN/CREATININE RATIO 15 (6-25); CALCIUM 8.8 mg/dL (8.4-10.2); CARBON DIOXIDE 28 mmol/L (22-29); CHLORIDE 102 mmol/L (98-107); EST GLOMERULAR FILTRATION RATE > 60 ML/MIN (60-); GLUCOSE 132 mg/dL (74-118); POTASSIUM 5.1 mmol/L (3.5-5.1); SODIUM 137 mmol/L (136-145)
[2017-07-09] MEDS: TIOTROPIUM 18 MCG INH POWDER INH SCH ×2 (07:55→09:31)
[2017-07-09] MEDS: LEVOTHYROXINE SODIUM 100 MCG/VIAL IV SCH (09:31)
[2017-07-09] MEDS: THIAMINE HCL INJ 100 MG/ML 2ML VIAL IV SCH (09:31)
[2017-07-09] MEDS: ENOXAPARIN INJ 80 MG/0.8 ML SYR SC SCH ×2 (09:31→21:41)
[2017-07-09] MEDS ORDERED: DIATRIZOATE MEGL/DIATRIZOA SOD 30 ML BTL PO ONE (09:51)
[2017-07-09] MEDS ORDERED: FUROSEMIDE INJ 10 MG/ML 4 ML VIAL IV ONE (10:40)
--- NOTE | 2017-07-09 17:15 | Diagnostic Imaging Report ---
PROCEDURE: CT ABDOMEN AND PELVIS WITHOUT CONTRAST TECHNIQUE: The abdomen and pelvis were scanned utilizing a multidetector helical scanner from the diaphragm to the lesser trochanter after the oral administration of Gastrografin. No IV contrast was administered per physician's request. Coronal and sagittal multiplanar reformations were obtained. COMPARISON: [facility], CT, CT ABDOMEN/PELVIS , 07/03/2017, 7:47. INDICATIONS: SMALL BOWEL OBSTRUCTION FINDINGS: ABSENCE OF INTRAVENOUS CONTRAST DECREASES SENSITIVITY FOR DETECTION OF FOCAL LESIONS AND VASCULAR PATHOLOGY. LOWER THORAX: Worsening atelectatic changes in the dependent portion of the posterior right lower lobe. Stable mild atelectatic changes in the left lower lobe. Partially visualized prosthetic aortic valve. Enteric tube in place, with distal tip in the stomach antrum. HEPATOBILIARY: No focal hepatic lesions. No biliary ductal dilatation. Stable 1.1 cm calcified stone in the gallbladder lumen. No wall thickening or pericholecystic fluid. SPLEEN: No splenomegaly. PANCREAS: No ductal dilation or focal lesions. There are scattered punctate calcifications in the pancreatic head (for example series 2 image 34) and tail (series 2 image 27). Mild to moderate pancreatic atrophy. ADRENALS: Stable 1.0 x 0.9 cm nodule in the left adrenal gland (series 2, image 25). Right adrenal gland is unremarkable. KIDNEYS/URETERS: Stable punctate nonobstructing calculi in the right kidney (series 2, images 29, 31 and 32 and coronal images 63, 66 and 68). No left renal or any ureteral calculi. No hydronephrosis or obstruction. No renal contour abnormalities. PELVIC ORGANS/BLADDER: Bladder is decompressed and there is a Hernandez catheter in place. PERITONEUM / RETROPERITONEUM: No interval change in approximately 4.0 x 3.8 x 3.6 cm hypodense fluid collection in the posterior pelvis at the presacral space (series 2, image 77 and sagittal image 72). There is mild surrounding stranding. No free air. LYMPH NODES: No lymphadenopathy. VESSELS: Stable aneurysmal dilation of the distal infrarenal abdominal aorta. Atherosclerotic calcification of the abdominal aorta and vessels. GI TRACT: Stable right lower quadrant ostomy and postoperative changes of total colectomy. Anastomotic sutures are again noted around the rectal stump. Multiple dilated loops of small bowel involving the jejunum and ileum are again noted, with maximal measurement of approximately 4.8 cm, which are not significantly changed since the prior exam. No definite transition point is identified. BONES AND SOFT TISSUES: No acute bony abnormalities. Stable age-indeterminate compression deformity of the L1 vertebral body. IMPRESSION: 1. no significant interval change in multiple dilated loops of small bowel involving jejunum and ileum to the level of the ostomy, without definite transition point, suggesting ileus. 2. Stable postoperative changes of colectomy, with anastomotic sutures noted in the distal rectal stump. 3. No interval change in 4.0 cm fluid collection in the posterior pelvis at the presacral space, which is indeterminate. This may represent a postoperative seroma, hematoma, or abscess, however, further characterization is limited by the lack of intravenous contrast. 4. Worsening atelectatic changes in the dependent portion of the posterior right lower lobe. 5. Findings in the pancreas suggest sequela of chronic pancreatitis. 6. Stable indeterminate 1.0 cm nodule in the left adrenal gland. This may be further evaluated with CT adrenal mass protocol, after acute episode has subsided. 7. Stable nonobstructing right renal calculi. Cristóbal Hatch M.D. Dictated by: Cristóbal Hatch M.D. on 07/09/2017 at 17:23 Electronically approved by: Cristóbal Hatch M.D. on 07/09/2017 at 17:23
[2017-07-10] VITALS (24 sets, daily range): BP systolic 107–143; BP diastolic 66–99
[2017-07-10] MEDS: CEFTRIAXONE SOD 1 GM in WATER STERILE 10ML VIAL 10 ML IV SCH ×2
[2017-07-10] MEDS: D5.45%NS/KCL 20MEQ 1,000 ML IV SCH ×2 (01:02→08:45)
[2017-07-10] MEDS: METOPROLOL TARTRATE INJ 1 MG/ML VIAL IV SCH ×3 (06:00→22:23)
[2017-07-10] MEDS: TIOTROPIUM 18 MCG INH POWDER INH SCH (07:35)
[2017-07-10] MEDS: THIAMINE HCL INJ 100 MG/ML 2ML VIAL IV SCH (08:41)
[2017-07-10] MEDS: ENOXAPARIN INJ 80 MG/0.8 ML SYR SC SCH (08:41)
[2017-07-10] MEDS: ONDANSETRON HCL INJ 2 MG/ML VIAL IV PRN (08:45)
[2017-07-10] MEDS: LEVOTHYROXINE SODIUM 100 MCG/VIAL IV SCH (09:00)
[2017-07-10] MEDS: DEXTROSE 5%/0.45% SOD CHL 1,000 ML IV SCH ×2 (10:00→21:26)
[2017-07-11] VITALS (61 sets, daily range): BP systolic 72–115; BP diastolic 47–97
[2017-07-11] MEDS: CEFTRIAXONE SOD 1 GM in WATER STERILE 10ML VIAL 10 ML IV SCH ×2 (00:30→23:26)
[2017-07-11] MEDS: ALBUMIN 5% 250ML IV SCH ×2 (00:30→20:30)
--- NOTE | 2017-07-11 01:20 | Progress Note ---
DATE: July 10, 2017 SUBJECTIVE: No fecal fluid or any gas in the ileostomy bag. Patient has NG, which is draining a copious amount of bile. He has been kept n.p.o. REVIEW OF SYSTEMS GENERAL: No fever or chills. CV: No chest or palpitations. RESPIRATORY: No cough or expectoration. MEDICATIONS: Reviewed as per OCT. Lovenox has been withheld since today. PHYSICAL EXAMINATION VITAL SIGNS: Temperature 97.2, pulse ranging from 92-101, respirations 16-18, blood pressure 124/91, oxygen saturation 93% on room air. GENERAL: Not in any apparent distress. HEENT: Moist mucous membranes. Moist mucous membranes. NG in place and draining bile. CV: S1 and S2 regular with a mechanical mitral valve click. LUNGS: Bilaterally grossly clear. ABDOMEN: Soft and nondistended. Tinkling bowel sounds in the upper quadrant. No mass or hernia. Ileostomy bag empty with a very minimal amount of serous fluid. LABS 1. CT of the abdomen and pelvis repeated yesterday showed no significant interval change in multiple dilated loops of small bowel involving the jejunum and ileum to the level of the ostomy. 2. Without definite transition point suggesting ileus. Stable postoperative changes of colectomy with anastomotic sutures noted in the distal rectal stump. 3. No interval change in 4 cm fluid collection in the posterior pelvis of presacral space, which is indeterminate. This may represent a postoperative seroma, hematoma or abscess. However, further characterization is limited by the lack of intravenous contrast. 4. Worsening atelectatic changes in the dependent portion of the posterior right lower lobe. 5. Findings in the pancreas suggests a sequelae of chronic pancreatitis. 6. Stable indeterminate 1-cm nodule in the left adrenal gland. This may be further evaluated with a CT adrenal mass protocol after acute episode has subsided. 7. Stable nonobstructing right renal calculi. IMPRESSION: Persistent small-bowel obstruction likely due to adhesions. PLAN: Patient has been scheduled to undergo laparotomy tomorrow. Lovenox has already been withheld. Electrolytes and peripheral cell count from yesterday reviewed. I met the patient's son at the bedside and answered all his questions in layman's terms. Job#: [id number] [place]
--- NOTE | 2017-07-11 02:02 | Progress Note ---
Disregard DATE: No Dictation 00:06 seconds. Job#: [id number] DR GREEN
[2017-07-11 05:22] LABS: BASOPHILS % 0.1 % (0.0-1.0); EOSINOPHILS # (AUTO) 0.1 (0.0-0.4); EOSINOPHILS % 0.7 % (0.0-6.0); HEMATOCRIT 32.3 % (38.2-49.6); HEMOGLOBIN 10.5 g/dL (14.0-18.0); LYMPHOCYTES # (AUTO) 2.3 (1.0-3.2); LYMPHOCYTES % 11.5 % (18.0-39.1); MEAN CORPUSCULAR HEMOGLOBIN 29.5 pg (28-32); MEAN CORPUSCULAR HGB CONC 32.5 g/dL (31-35); MEAN CORPUSCULAR VOLUME 90.7 fL (81-99); MONOCYTES # (AUTO) 1.5 (0.2-0.8); MONOCYTES % 7.6 % (4.4-11.3); NEUTROPHILS # (AUTO) 15.9 (2.1-6.9); NEUTROPHILS % 78.6 % (38.7-80.0); PLATELET COUNT 240 x10e3/uL (140-360); RED BLOOD COUNT 3.56 x10e6/uL (4.3-5.7); RED CELL DISTRIBUTION WIDTH 16.5 % (11.7-14.4)
[2017-07-11 05:31] LABS: INR 3.25; PROTHROMBIN TIME 34.9 seconds (11.9-14.5)
[2017-07-11 05:37] LABS: PARTIAL THROMBOPLASTIN TIME 73.8 seconds (23.8-35.5)
[2017-07-11 05:42] LABS: ANION GAP 14.8 mmol/L (8-16); CALCIUM 8.4 mg/dL (8.4-10.2); CREATININE, SERUM 2.39 mg/dL (0.72-1.25); MAGNESIUM 1.8 MG/DL (1.3-2.1); PHOSPHORUS 2.4 MG/DL (2.3-4.7); POTASSIUM 4.8 mmol/L (3.5-5.1)
[2017-07-11] MEDS: METOPROLOL TARTRATE INJ 1 MG/ML VIAL IV SCH ×3 (06:07→23:26)
[2017-07-11] MEDS: DEXTROSE 5%/0.45% SOD CHL 1,000 ML IV SCH (06:07)
[2017-07-11] MEDS: LEVOTHYROXINE SODIUM 100 MCG/VIAL IV SCH (09:17)
[2017-07-11] MEDS ORDERED: SODIUM CHLORIDE 0.9% 1000ML 1,000 ML IV SCH ×4 (09:30→17:00)
[2017-07-11] MEDS: THIAMINE HCL INJ 100 MG/ML 2ML VIAL IV SCH (10:00)
[2017-07-11] MEDS: TIOTROPIUM 18 MCG INH POWDER INH SCH (11:32)
[2017-07-11] MEDS ORDERED: PHYTONADIONE 10 MG/ML AMP SQ ONE (13:45)
--- NOTE | 2017-07-11 15:42 | Diagnostic Imaging Report ---
PROCEDURE: A single AP view of the chest. COMPARISON: Chest x-ray 07/03/2017. INDICATIONS: PICC LINE PLACEMENT FINDINGS: Lines/tubes: Right PICC line tip is at low SVC. Nasogastric tube tip is not included on this film. Lungs: Lungs are mildly inflated. Perihilar interstitial edema with bibasilar atelectasis. Pleura: There is no pleural effusion or pneumothorax. Heart and mediastinum: The heart and the mediastinum are unremarkable. Bones: No acute bony abnormality. IMPRESSION: 1. Right PICC line tip is at low SVC. 2. Mild perihilar interstitial edema and bibasilar atelectasis. Dictated by: Humberto Carroll M.D. on 07/11/2017 at 15:50 Electronically approved by: Humberto Carroll M.D. on 07/11/2017 at 15:50
[2017-07-11] MEDS ORDERED: SODIUM CHLORIDE 0.9% 1000ML 1,000 ML ONE (16:15)
[2017-07-11] MEDS: DEXTROSE 5%/0.9% SOD CHL 1,000 ML IV SCH (16:50)
[2017-07-11] MEDS ORDERED: MORPHINE SULFATE 2 MG/ML SYR IV PRN (18:45)
[2017-07-11] MEDS ORDERED: CENTRAL TPN FORMULA 1 BAG IV SCH (20:00)
[2017-07-11] MEDS ORDERED: FUROSEMIDE INJ 10 MG/ML 2 ML VIAL IV ONE (20:15)
[2017-07-11] MEDS ORDERED: ALBUMIN 5% 250ML IV SCH (20:30)
[2017-07-11] MEDS ORDERED: PHYTONADIONE 10 MG/ML AMP IV ONE (23:15)
[2017-07-11] MEDS ORDERED: SODIUM CHLORIDE 0.9% 50ML 50 ML IV ONE (23:15)
--- NOTE | 2017-07-11 23:23 | Progress Note ---
DATE: July 11, 2017 SUBJECTIVE: Patient could not undergo surgery today due to elevated INR. He also likely became more septic. Reports mild abdominal pain. NG is draining bile. REVIEW OF SYSTEMS GENERAL: No fever or chills. CV: No chest pain or palpitations. RESPIRATORY: No cough or expectoration. MEDICATIONS: Reviewed as per OCT. He is being given intravenous ceftriaxone. Other medications reviewed as per OCT. PHYSICAL EXAMINATION VITAL SIGNS: Temperature 96.3, pulse 84-101, respirations 18-20, blood pressure 102/47, oxygen saturation 100% on 3 L nasal cannula. GENERAL: No apparent distress. HEENT: Moist mucous membranes. CV: S1 and S2 regular with mitral valve click. LUNGS: Bilaterally grossly clear. ABDOMEN: Soft without any gaseous distention. Nontender. No palpable mass or hernia. Ostomy bag empty with a little bit of clear fecal fluid. No gas. Nontender. No other mass or hernia. Bowel sounds minimal to absent. EXTREMITIES: Warm. No leg edema. LABS: INR 3.25. Sodium 133, potassium 4.8, chloride 92, bicarb 31, BUN 28, creatinine has gone up to 2.39 from 1.1. WBC has gone up to 20.2 from 13.4, hemoglobin 10.5, hematocrit 32.3, and platelet count 240,000. Blood culture and urine culture done again and is pending. IMPRESSION 1. Small-bowel obstruction likely due to adhesions. 2. Mechanical mitral valve: Warfarin is on hold. He was getting Lovenox, which has been withheld anticipating surgery tomorrow. INR was noted at 3.25. He was given 2 units of fresh frozen plasma. Sepsis source is unclear. Rising white count. Currently, being treated with intravenous antibiotics. PLAN: Continue the present management. Surgery likely tomorrow if INR falls within acceptable limits. Job#: [id number] BIBIANA GREEN
[2017-07-12] VITALS (45 sets, daily range): BP systolic 87–167; BP diastolic 49–109
[2017-07-12] MEDS: WATER STERILE 10 ML VIAL IV SCH
[2017-07-12] MEDS: CEFTRIAXONE SOD 1 GM VIAL IV SCH
[2017-07-12] MEDS ORDERED: ALBUMIN HUMAN 12.5GM / 50ML IV ONE ×2 (01:00→06:00)
[2017-07-12] MEDS: DEXTROSE 5%/0.9% SOD CHL 1,000 ML IV SCH ×2 (01:18→22:11)
[2017-07-12] MEDS: METOPROLOL TARTRATE INJ 1 MG/ML VIAL IV SCH ×3 (06:01→22:10)
[2017-07-12 06:07] LABS: BASOPHILS % 0.1 % (0.0-1.0); EOSINOPHILS # (AUTO) 0.1 (0.0-0.4); EOSINOPHILS % 0.6 % (0.0-6.0); HEMATOCRIT 25.3 % (38.2-49.6); HEMOGLOBIN 8.1 g/dL (14.0-18.0); LYMPHOCYTES # (AUTO) 0.9 (1.0-3.2); LYMPHOCYTES % 8.4 % (18.0-39.1); MEAN CORPUSCULAR VOLUME 93.7 fL (81-99); MONOCYTES # (AUTO) 0.8 (0.2-0.8); MONOCYTES % 7.6 % (4.4-11.3); NEUTROPHILS # (AUTO) 8.7 (2.1-6.9); NEUTROPHILS % 81.6 % (38.7-80.0); PLATELET COUNT 173 x10e3/uL (140-360); RED CELL DISTRIBUTION WIDTH 16.3 % (11.7-14.4)
[2017-07-12] MEDS ORDERED: ALBUMIN 5% 250 ML IV ONE (06:15)
[2017-07-12 06:18] LABS: INR 1.2; PROTHROMBIN TIME 15.8 seconds (11.9-14.5)
[2017-07-12 06:19] LABS: PARTIAL THROMBOPLASTIN TIME 41.8 seconds (23.8-35.5)
[2017-07-12 06:31] LABS: ALBUMIN 2.5 g/dL (3.5-5.0); ALBUMIN/GLOBULIN RATIO 0.7 (0.8-2.0); ANION GAP 11.3 mmol/L (8-16); CREATININE, SERUM 1.35 mg/dL (0.72-1.25); POTASSIUM 3.3 mmol/L (3.5-5.1)
[2017-07-12] MEDS ORDERED: POTASSIUM CHLORIDE 20MEQ/100ML 100 ML IV ONE (07:30)
[2017-07-12] MEDS ORDERED: POTASSIUM CHLORIDE 10MEQ/100ML 200 ML IV ONE (08:00)
[2017-07-12] MEDS: LEVOTHYROXINE SODIUM 100 MCG/VIAL IV SCH (09:41)
[2017-07-12] MEDS: TIOTROPIUM 18 MCG INH POWDER INH SCH (11:02)
[2017-07-12] MEDS ORDERED: BUPIVACAINE 0.25%/EPI 30ML SDV INJ ONE (13:13)
--- NOTE | 2017-07-12 13:49 | Progress Note ---
DATE: July 12, 2017 GASTROENTEROLOGY PROGRESS NOTE SUBJECTIVE: Patient is scheduled to undergo surgery this afternoon. The NG tube is in place, draining bile. He denies any abdominal pain. No nausea or vomiting. REVIEW OF SYSTEMS GENERAL: No fever or chills. CVS: No chest pain or palpitation. RESPIRATORY: No cough or expectoration. MEDICATION: Inpatient medications reviewed. He is on intravenous ceftriaxone along with other medications. OBJECTIVE VITAL SIGNS: Temperature 99.2, pulse 90, respiration 18, blood pressure 124/59, oxygen saturation 98% on 3 liters of nasal cannula. GENERAL: Not in any apparent distress. HEENT: Moist mucous membranes. Anicteric sclerae. NG draining bile. CVS: S1/S2 regular with a 2/6 flow murmur and a mechanical mitral valve click. LUNGS: Bilaterally grossly clear. ABDOMEN: Soft, nondistended, nontender. Occasional tinkling bowel sound in the upper quadrant. Ileostomy bag with a very minimal amount of serous fecal fluid, no gas. EXTREMITIES: Warm. No leg edema. LAB: WBC has come down to 10.65 from 20.20, hemoglobin 8.1 down from 10.5, hematocrit 25.3, platelet count 173. Sodium 138, potassium 3.3, chloride 99, bicarb 32, BUN 22, creatinine 1.35 down from 2.39, and glucose 109. INR has come down to 1.20 from 3.25. ASSESSMENT AND PLAN: Looks like patient's sepsis is resolving with IV antibiotic. Blood culture result is pending. Urine culture's preliminary report showed no growth. Coagulation, the INR has normalized. Patient is currently getting TPN. Will follow him post surgery. Job#: [id number] EV NORMA
[2017-07-12] MEDS ORDERED: METRONIDAZOLE 500MG/NS 100ML 100 ML IV ONE (14:50)
[2017-07-12] MEDS ORDERED: LEVOFLOXACIN 500MG/D5W 100ML 100 ML IV ONE (14:51)
[2017-07-12] MEDS ORDERED: FENTANYL CITRATE/PF 100MCG/2 ML INJ ONE ×2 (17:48→18:56)
[2017-07-12] MEDS ORDERED: HYDROMORPHONE 1MG/1ML INJ ONE (18:04)
[2017-07-12] MEDS ORDERED: GLYCOPYRROLATE INJ 1MG/ 5 ML SYR ONE (18:41)
[2017-07-12] MEDS ORDERED: NEOSTIGMINE 5 MG/5ML SYR ONE (18:41)
[2017-07-12] MEDS ORDERED: ONDANSETRON HCL INJ 2 MG/ML VIAL ONE (18:41)
[2017-07-12] MEDS ORDERED: ROCURONIUM BROMIDE 10 MG/ML 5ML VIAL ONE (18:41)
[2017-07-12] MEDS ORDERED: SEVOFLURANE INHAL SOLN 250 ML PEN BTL ONE (18:41)
[2017-07-12] MEDS ORDERED: SUCCINYLCHOLINE 200 MG/10 ML SYR ONE (18:41)
[2017-07-12] MEDS ORDERED: PROPOFOL IV EMULSION 10 MG/ML 20 ML VIAL ONE (18:41)
[2017-07-12] MEDS ORDERED: LIDOCAINE HCL 2% LOCAL INJ 5 ML SDV VIAL INJ ONE (18:41)
[2017-07-12] MEDS: CENTRAL TPN FORMULA 1 BAG IV SCH (21:42)
[2017-07-12] MEDS: ALBUMIN 5% 250 ML IV SCH (21:46)
[2017-07-12] MEDS: METRONIDAZOLE 500MG/NS 100ML 100 ML IV SCH (21:46)
[2017-07-12] MEDS ORDERED: SODIUM CHLORIDE 0.9% 250ML 250 ML ONE (21:59)
[2017-07-12] MEDS ORDERED: ALBUMIN 5% 250ML IV SCH (22:00)
[2017-07-12] MEDS: MORPHINE SULFATE 5 MG/ML VIAL IV PRN (22:17)
[2017-07-13] VITALS (36 sets, daily range): BP systolic 123–181; BP diastolic 57–87
[2017-07-13] MEDS: CEFTRIAXONE SOD 1 GM VIAL IV SCH (00:45)
[2017-07-13] MEDS: WATER STERILE 10 ML VIAL IV SCH (00:45)
[2017-07-13] MEDS: MORPHINE SULFATE 5 MG/ML VIAL IV PRN ×3 (03:08→12:38)
[2017-07-13] MEDS: ALBUMIN 5% 250 ML IV SCH ×3 (06:15→21:35)
[2017-07-13] MEDS: METOPROLOL TARTRATE INJ 1 MG/ML VIAL IV SCH ×3 (06:15→21:35)
[2017-07-13] MEDS: METRONIDAZOLE 500MG/NS 100ML 100 ML IV SCH ×3 (06:15→21:45)
[2017-07-13] MEDS: TIOTROPIUM 18 MCG INH POWDER INH SCH (09:00)
[2017-07-13] MEDS: LEVOTHYROXINE SODIUM 100 MCG/VIAL IV SCH (09:54)
--- NOTE | 2017-07-13 11:08 | Operative Report ---
DATE OF PROCEDURE: July 12, 2017 PREOPERATIVE DIAGNOSIS: Intestinal obstruction. POSTOPERATIVE DIAGNOSIS: Intestinal obstruction with stricture at the ileostomy site and pelvic abscess. OPERATIVE PROCEDURE: 1. Diagnostic laparoscopy. 2. Open lysis of adhesions. 3. Revision of ileostomy with drainage of pelvic abscess. ANESTHESIA: General endotracheal. INDICATIONS FOR SURGERY: The patient is a 76-year-old male with history of intestinal obstruction for 1 week. He is status post subtotal colectomy for ulcerative colitis a month ago. The patient has consented for diagnostic laparoscopy, possible open with indicated procedure and attendant risks discussed. PROCEDURE FINDINGS: Intestinal obstruction with adhesions between loops of bowel as well as at the ileostomy site in the right upper quadrant abdominal wall. There is also a greenish fluid abscess in the deep pelvis at the rectal stump. DESCRIPTION OF PROCEDURE: The patient was brought to the OR, intubated. Abdomen prepped with alcohol and draped in sterile fashion. A left upper quadrant direct port access is carried out and insufflation then begun. Under direct vision, other port sites placed in the left flank and left lower quadrant. We proceeded to perform a laparoscopic examination. The small bowel was noted to be dilated throughout. We then followed the dilated bowel to the ileostomy site in the right upper quadrant. It looked like the loop of ileum is twisted clockwise in a 360 degree fashion causing complete blockage of the ileum just inside the abdominal wall. We then proceeded to look into the pelvis since there was a collection seen on CT scan. In this area the loops of small bowel is easily mobilized out of the pelvis and a collection of greenish bilious fluid is encountered. At this time, decision is made to convert to open surgery to clearly delineate the problems. The midline fascia was carried out from above to below the umbilicus going through the linea alba. The ileostomy site is approached first. The RADHA stapler was used to transect the ileum which was twisted just inside the abdominal wall and the mesentery controlled with Enseal instrument. The small bowel is then run in a retrograde fashion. There are several areas of adhesions induced and partial obstruction of the intestine which was lysed using sharp scissor dissection. The intestine is run all the way back to the ligament of Treitz with no other obstruction noted. We then approached the pelvic area. The rectal stump is noted to be macerated and the staple line is not seen. Left of the rectum is seen to be matted together with a collection of green bowel in the area which was suctioned out. No further greenish fluid accumulated after that. We then proceeded to create a new ostomy site in the right lower quadrant through the or rectus muscle. The circular piece of skin is removed and underlying anterior fascia was opened in a cruciate fashion. The posterior fascia is opened in a transverse fashion and 2 fingers passed through this ostomy site easily as we exteriorized the terminal ileum and the bowel is then anchored to the inside of the abdominal wall with a 3-0 silk stitch to prevent future torsion. A 19-Nigerien Lele drain placed in the pelvis and taken out through the left lower quadrant port site. We then irrigated the peritoneal cavity and hemostasis achieved. The midline fascia then closed with a running number 1 PDS and skin closed with ciarra. The previous ostomy site is removed by taking circular piece of tissue around the ostomy and the piece of ileum is removed from the abdominal wall completely. This former ostomy site is closed in layers with 0 Vicryl interrupted for both posterior and anterior fascia. The subcutaneous tissue is irrigated. The skin closed with ciarra. We then proceeded to mature the new ileostomy by everting the bowel edge to the skin with interrupted 3-0 Vicryl stitches. Ostomy appliance inserted. We then proceeded to extubate the patient and transported him to recovery room in guarded condition. Estimated blood loss 10 mL. Job#: [id number]
[2017-07-13] MEDS: DEXTROSE 5%/0.9% SOD CHL 1,000 ML IV SCH (13:16)
[2017-07-13 14:20] LABS: ANION GAP 9.5 mmol/L (8-16); BLOOD UREA NITROGEN 23 mg/dL (7-26); BUN/CREATININE RATIO 25 (6-25); CALCIUM 7.9 mg/dL (8.4-10.2); CARBON DIOXIDE 25 mmol/L (22-29); CHLORIDE 107 mmol/L (98-107); CREATININE, SERUM 0.93 mg/dL (0.72-1.25); EST GLOMERULAR FILTRATION RATE > 60 ML/MIN (60-); GLUCOSE 149 mg/dL (74-118); MAGNESIUM 1.8 MG/DL (1.3-2.1); PHOSPHORUS 2.2 MG/DL (2.3-4.7); POTASSIUM 3.5 mmol/L (3.5-5.1); SODIUM 138 mmol/L (136-145)
[2017-07-13 15:29] LABS: BASOPHILS % 0.2 % (0.0-1.0); EOSINOPHILS % 0.1 % (0.0-6.0); HEMATOCRIT 26.6 % (38.2-49.6); HEMOGLOBIN 8.3 g/dL (14.0-18.0); LYMPHOCYTES # (AUTO) 1.1 (1.0-3.2); LYMPHOCYTES % 5.9 % (18.0-39.1); MEAN CORPUSCULAR HEMOGLOBIN 30.1 pg (28-32); MEAN CORPUSCULAR HGB CONC 31.2 g/dL (31-35); MEAN CORPUSCULAR VOLUME 96.4 fL (81-99); MONOCYTES # (AUTO) 1.2 (0.2-0.8); MONOCYTES % 6.3 % (4.4-11.3); NEUTROPHILS # (AUTO) 16.7 (2.1-6.9); NEUTROPHILS % 86.4 % (38.7-80.0); PLATELET COUNT 192 x10e3/uL (140-360); RED BLOOD COUNT 2.76 x10e6/uL (4.3-5.7); RED CELL DISTRIBUTION WIDTH 15.9 % (11.7-14.4)
[2017-07-14] VITALS (48 sets, daily range): BP systolic 128–179; BP diastolic 53–96
[2017-07-14] MEDS: WATER STERILE 10 ML VIAL IV SCH (00:50)
[2017-07-14] MEDS: CEFTRIAXONE SOD 1 GM VIAL IV SCH (00:50)
[2017-07-14] MEDS: MORPHINE SULFATE 5 MG/ML VIAL IV PRN ×5 (01:45→18:06)
[2017-07-14] MEDS: METRONIDAZOLE 500MG/NS 100ML 100 ML IV SCH ×3 (05:10→22:02)
[2017-07-14] MEDS: DEXTROSE 5%/0.9% SOD CHL 1,000 ML IV SCH ×3 (05:10→21:19)
[2017-07-14] MEDS: METOPROLOL TARTRATE INJ 1 MG/ML VIAL IV SCH ×3 (05:11→22:02)
[2017-07-14] MEDS: LEVOTHYROXINE SODIUM 100 MCG/VIAL IV SCH (09:12)
[2017-07-14] MEDS: TIOTROPIUM 18 MCG INH POWDER INH SCH (10:50)
[2017-07-14] MEDS: HYDROMORPHONE 1MG/1ML INJ IV PRN (18:29)
[2017-07-14] MEDS: CENTRAL TPN FORMULA 1 BAG IV SCH (20:28)
[2017-07-15] VITALS (63 sets, daily range): BP systolic 128–176; BP diastolic 51–101
[2017-07-15] MEDS: CEFTRIAXONE SOD 1 GM VIAL IV SCH (00:08)
[2017-07-15] MEDS: WATER STERILE 10 ML VIAL IV SCH (00:09)
[2017-07-15] MEDS: HYDROMORPHONE 1MG/1ML INJ IV PRN ×5 (00:11→20:37)
[2017-07-15] MEDS: METOPROLOL TARTRATE INJ 1 MG/ML VIAL IV SCH ×3 (06:00→22:10)
[2017-07-15] MEDS: METRONIDAZOLE 500MG/NS 100ML 100 ML IV SCH ×3 (06:36→22:10)
[2017-07-15 07:09] LABS: BASOPHILS % 0.2 % (0.0-1.0); EOSINOPHILS # (AUTO) 0.2 (0.0-0.4); EOSINOPHILS % 1.6 % (0.0-6.0); HEMATOCRIT 24.7 % (38.2-49.6); HEMOGLOBIN 7.7 g/dL (14.0-18.0); LYMPHOCYTES % 7.6 % (18.0-39.1); MEAN CORPUSCULAR HEMOGLOBIN 30.6 pg (28-32); MEAN CORPUSCULAR HGB CONC 31.2 g/dL (31-35); MONOCYTES # (AUTO) 0.9 (0.2-0.8); MONOCYTES % 7.1 % (4.4-11.3); NEUTROPHILS # (AUTO) 10.8 (2.1-6.9); NEUTROPHILS % 82.7 % (38.7-80.0); PLATELET COUNT 194 x10e3/uL (140-360); RED BLOOD COUNT 2.52 x10e6/uL (4.3-5.7); RED CELL DISTRIBUTION WIDTH 15.7 % (11.7-14.4)
[2017-07-15] MEDS: TIOTROPIUM 18 MCG INH POWDER INH SCH (07:10)
[2017-07-15 07:27] LABS: ALANINE AMINOTRANSFERASE 10 IU/L (0-55); ALBUMIN/GLOBULIN RATIO 0.6 (0.8-2.0); ALKALINE PHOSPHATASE 83 IU/L (40-150); ANION GAP 7.3 mmol/L (8-16); BLOOD UREA NITROGEN 17 mg/dL (7-26); BUN/CREATININE RATIO 26 (6-25); CARBON DIOXIDE 22 mmol/L (22-29); CHLORIDE 113 mmol/L (98-107); CREATININE, SERUM 0.65 mg/dL (0.72-1.25); EST GLOMERULAR FILTRATION RATE > 60 ML/MIN (60-); GLUCOSE 137 mg/dL (74-118); MAGNESIUM 1.5 MG/DL (1.3-2.1); POTASSIUM 3.3 mmol/L (3.5-5.1); SODIUM 139 mmol/L (136-145); TRIGLYCERIDES 68 MG/DL (0-149)
[2017-07-15] MEDS ORDERED: FUROSEMIDE INJ 10 MG/ML 2 ML VIAL IV PRN (08:00)
[2017-07-15] MEDS ORDERED: SODIUM CHLORIDE 0.9% 250ML 250 ML IV ONE (08:45)
[2017-07-15] MEDS: LEVOTHYROXINE SODIUM 100 MCG/VIAL IV SCH (09:25)
[2017-07-15] MEDS: DEXTROSE 5%/0.9% SOD CHL 1,000 ML IV SCH (11:00)
[2017-07-15] MEDS ORDERED: HYDROMORPHONE 1MG/1ML INJ IV ONE (17:30)
--- NOTE | 2017-07-15 17:47 | Diagnostic Imaging Report ---
PROCEDURE:ABDOMEN-1VIEW (KUB) TECHNIQUE:Supine portable AP abdomen totaling 3 radiographs INDICATION:Post colostomy. Abdominal distention and pain. COMPARISON:Patients [facility], CT, CT ABDOMEN/PELVIS WO, 07/09/2017, 14:59. FINDINGS: See conclusion. CONCLUSION: 1. Multi-fenestrated drain overlying the pelvis. Multiple abdominal soft tissue surgical ciarra. 2. Diffuse gaseous distention of the small bowel suggesting postoperative ileus. 3. No evidence of ascites. Dictated by: Marbin Turk M.D. on 07/15/2017 at 17:55 Electronically approved by: Marbin Turk M.D. on 07/15/2017 at 17:55
[2017-07-15] MEDS ORDERED: POTASSIUM CHLORIDE 20MEQ/100ML 200 ML IV ONE (18:00)
[2017-07-15] MEDS: METOCLOPRAMIDE HCL 10 MG/2ML VIAL IV SCH (18:44)
[2017-07-15] MEDS ORDERED: CENTRAL TPN FORMULA 1 BAG IV SCH (20:00)
[2017-07-16] VITALS (63 sets, daily range): BP systolic 107–186; BP diastolic 34–113
[2017-07-16] MEDS: WATER STERILE 10 ML VIAL IV SCH (00:16)
[2017-07-16] MEDS: CEFTRIAXONE SOD 1 GM VIAL IV SCH (00:16)
[2017-07-16] MEDS: HYDROMORPHONE 1MG/1ML INJ IV PRN ×5 (00:16→21:33)
[2017-07-16] MEDS: METOCLOPRAMIDE HCL 10 MG/2ML VIAL IV SCH ×4 (00:16→18:47)
[2017-07-16 06:12] LABS: BASOPHILS % 0.2 % (0.0-1.0); EOSINOPHILS # (AUTO) 0.3 (0.0-0.4); HEMATOCRIT 30.3 % (38.2-49.6); HEMOGLOBIN 9.8 g/dL (14.0-18.0); LYMPHOCYTES # (AUTO) 1.4 (1.0-3.2); LYMPHOCYTES % 10.7 % (18.0-39.1); MEAN CORPUSCULAR HEMOGLOBIN 30.2 pg (28-32); MEAN CORPUSCULAR HGB CONC 32.3 g/dL (31-35); MEAN CORPUSCULAR VOLUME 93.2 fL (81-99); MONOCYTES # (AUTO) 1.1 (0.2-0.8); MONOCYTES % 8.2 % (4.4-11.3); NEUTROPHILS # (AUTO) 10.1 (2.1-6.9); NEUTROPHILS % 77.8 % (38.7-80.0); PLATELET COUNT 183 x10e3/uL (140-360); RED BLOOD COUNT 3.25 x10e6/uL (4.3-5.7); RED CELL DISTRIBUTION WIDTH 16.4 % (11.7-14.4)
[2017-07-16 06:45] LABS: ANION GAP 9.6 mmol/L (8-16); BLOOD UREA NITROGEN 20 mg/dL (7-26); BUN/CREATININE RATIO 27 (6-25); CALCIUM 8.2 mg/dL (8.4-10.2); CARBON DIOXIDE 22 mmol/L (22-29); CHLORIDE 115 mmol/L (98-107); CREATININE, SERUM 0.75 mg/dL (0.72-1.25); EST GLOMERULAR FILTRATION RATE > 60 ML/MIN (60-); GLUCOSE 132 mg/dL (74-118); MAGNESIUM 1.6 MG/DL (1.3-2.1); PHOSPHORUS 1.6 MG/DL (2.3-4.7); POTASSIUM 3.6 mmol/L (3.5-5.1); SODIUM 143 mmol/L (136-145)
[2017-07-16] MEDS: METOPROLOL TARTRATE INJ 1 MG/ML VIAL IV SCH ×3 (06:48→21:33)
[2017-07-16] MEDS: METRONIDAZOLE 500MG/NS 100ML 100 ML IV SCH ×3 (06:48→21:33)
[2017-07-16] MEDS: TIOTROPIUM 18 MCG INH POWDER INH SCH (07:10)
[2017-07-16] MEDS ORDERED: POTASSIUM CHLORIDE 10MEQ/100ML 200 ML IV ONE (09:15)
[2017-07-16] MEDS ORDERED: MAGNESIUM SULFATE 2GM/50ML 50 ML IV ONE (09:15)
[2017-07-16] MEDS: ENOXAPARIN SOD INJ 60 MG/0.6 ML SYR SC SCH ×2 (10:30→21:32)
[2017-07-16] MEDS: LEVOTHYROXINE SODIUM 100 MCG/VIAL IV SCH (11:00)
[2017-07-16] MEDS ORDERED: POTASSIUM PHOSPHATE 20 MM in SODIUM CHLORIDE 0.9% 250ML 250 ML IV ONE (11:00)
[2017-07-16] MEDS ORDERED: CENTRAL TPN FORMULA 1 BAG IV SCH (13:59)
[2017-07-16] MEDS ORDERED: FUROSEMIDE INJ 10 MG/ML 4 ML VIAL IV ONE (14:00)
[2017-07-16] MEDS ORDERED: POTASSIUM CHLORIDE 20MEQ/100ML 100 ML IV ONE (14:15)
[2017-07-16] MEDS ORDERED: SIMETHICONE 80 MG CHEW PO PRN (16:15)
--- NOTE | 2017-07-16 22:39 | Progress Note ---
DATE: July 16, 2017 SUBJECTIVE: Patient is being allowed clear liquid, which he is tolerating it very well. No nausea, vomiting. He has had laparoscopic adhenolysis as well as drainage of the pelvic abscess on July 12, 2017. He is still on TPN. He is on Lovenox for mechanical mitral valve. He is also getting intravenous antibiotic. REVIEW OF SYSTEMS: GENERAL: No fever or chills. CVS: No chest pain, no palpitation. RESPIRATORY: No cough or expectoration. MEDICATIONS: As per MAR, reviewed. PHYSICAL EXAMINATION: VITAL SIGNS: Temperature 98, pulse ranging from 87 to 107, blood pressure 136/69, respirations 16 to 18, oxygen saturation 95% on 3 L of nasal cannula. GENERAL: Not in any acute distress. HEENT: Moist mucous membranes. Anicteric sclerae. CVS: S1 and S2 regular. LUNGS: Bilaterally grossly clear. ABDOMEN: Soft. Incisional tenderness. Ileostomy bag with clear fecal fluid with some gas. CARLOS drain. Minimal bowel sounds. EXTREMITIES: Warm. No leg edema. LABS: WBC has come down to 12.91 from 13.08, hemoglobin 9.8, hematocrit 30.3, MCV 93.2, platelet count 183,000. Sodium 143, potassium 3.6, chloride 115, bicarb 22, BUN 20, creatinine 0.75. PT 15.8, INR 1.20. Stool C. difficile negative. IMPRESSION: 1. Small-bowel obstruction, resolved after laparoscopic adhenolysis. Pelvic abscess also drained. 2. Anticoagulation resumed. Patient is on Lovenox 60 mg subcutaneously twice daily. PLAN: Postop care as per surgery. Continue TPN until oral intake meets the calorie requirement. Continue IV antibiotics. White count is trending down. Will continue to monitor him clinically. Job#: [id number] DR GREEN
[2017-07-17] VITALS (36 sets, daily range): BP systolic 96–157; BP diastolic 58–83
[2017-07-17] MEDS: METOCLOPRAMIDE HCL 10 MG/2ML VIAL IV SCH ×4 (00:30→18:07)
[2017-07-17] MEDS: HYDROMORPHONE 1MG/1ML INJ IV PRN ×4 (00:40→18:07)
[2017-07-17] MEDS: WATER STERILE 10 ML VIAL IV SCH (01:00)
[2017-07-17] MEDS: CEFTRIAXONE SOD 1 GM VIAL IV SCH (01:00)
[2017-07-17] MEDS: METRONIDAZOLE 500MG/NS 100ML 100 ML IV SCH ×3 (05:48→22:32)
[2017-07-17] MEDS: METOPROLOL TARTRATE INJ 1 MG/ML VIAL IV SCH ×3 (05:49→22:32)
[2017-07-17] MEDS: TIOTROPIUM 18 MCG INH POWDER INH SCH (09:00)
[2017-07-17] MEDS ORDERED: POTASSIUM CHLORIDE 20MEQ/100ML 200 ML IV ONE (09:15)
[2017-07-17] MEDS: LEVOTHYROXINE SODIUM 100 MCG/VIAL IV SCH (10:40)
[2017-07-17] MEDS: ENOXAPARIN SOD INJ 60 MG/0.6 ML SYR SC SCH ×2 (10:40→22:21)
--- NOTE | 2017-07-17 19:28 | Progress Note ---
DATE: July 17, 2017 SUBJECTIVE: The patient successfully transferred from ICU to the regular floor. He is tolerating full liquid diet. No nausea or vomiting. REVIEW OF SYSTEMS: GENERAL: No fever or chills. CVS: No chest pain or palpitations. RESPIRATORY: No cough or expectoration. MEDICATIONS: Metoprolol, metronidazole, metoclopramide, hydromorphone, Lovenox 50 mg subcu twice daily, levothyroxine, ceftriaxone 1 gram q.24 h., Zofran, TPN, Simethicone. OBJECTIVE VITAL SIGNS: Temperature 99.7, pulse ranging from 98 to 101, respirations 18, blood pressure 145/68 to 131/66, oxygen saturation 100% on 2 liters of nasal cannula. GENERAL: Not in any acute distress. HEENT: Moist mucous membranes. Anicteric sclerae. CVS: S1 and S2 regular with mechanical mitral valve click. LUNGS: Bilaterally grossly clear. ABDOMEN: Soft. Surgical dressing with CARLOS drain in the left lower quadrant. Mild incisional tenderness. No other mass or hernia. Bowel sounds are hypoactive in upper quadrant. EXTREMITIES: Warm, no leg edema. LABORATORY DATA: WBC has come down to 12.91 from 13.08. Hemoglobin has gone up to 9.8 from 7.7. Hematocrit 30.3, MCV 93.2, platelet count 183,000. IMPRESSION 1. Small bowel obstruction, resolved after laparoscopic adenolysis, pelvic abscess drainage on 07/12/17. 2. Leukocytosis due to underlying sepsis on broad-spectrum intravenous antibiotics. White count is improving. 1. Anticoagulation resumed for mechanical mitral valve. The patient is currently getting Lovenox 60 mg subcu twice daily. PLAN: Postop care. Full liquid diet, advance diet slowly to soft food and wean off the TPN. Continue antibiotics especially when the white count is trending down. Hemoglobin has gone up to 9.8 from 7.7 after 2 units of packed red blood cell transfusion. I will continue to follow him. Job#: [id number]
[2017-07-17] MEDS: CENTRAL TPN FORMULA 1 BAG IV SCH (20:29)
[2017-07-18] MEDS: CEFTRIAXONE SOD 1 GM VIAL IV SCH (00:24)
[2017-07-18] MEDS: METOCLOPRAMIDE HCL 10 MG/2ML VIAL IV SCH ×4 (00:24→18:21)
[2017-07-18] MEDS: WATER STERILE 10 ML VIAL IV SCH (00:24)
[2017-07-18] MEDS: HYDROMORPHONE 1MG/1ML INJ IV PRN ×6 (00:25→20:39)
[2017-07-18 00:37] VITALS: BP 102/69
[2017-07-18 04:24] VITALS: BP 104/61
[2017-07-18] MEDS: METRONIDAZOLE 500MG/NS 100ML 100 ML IV SCH ×3 (05:43→22:19)
[2017-07-18] MEDS: METOPROLOL TARTRATE INJ 1 MG/ML VIAL IV SCH ×3 (05:50→22:00)
[2017-07-18 07:40] VITALS: BP 114/62
[2017-07-18] MEDS: ENOXAPARIN SOD INJ 60 MG/0.6 ML SYR SC SCH ×2 (08:58→20:38)
[2017-07-18] MEDS: TIOTROPIUM 18 MCG INH POWDER INH SCH (09:00)
[2017-07-18] MEDS: LEVOTHYROXINE SODIUM 100 MCG/VIAL IV SCH (10:00)
[2017-07-18 12:33] VITALS: BP 108/41
[2017-07-18 16:35] VITALS: BP 117/69
[2017-07-18 20:07] VITALS: BP 119/55
[2017-07-18] MEDS: CENTRAL TPN FORMULA 1 BAG IV SCH (20:19)
[2017-07-19] MEDS: WATER STERILE 10 ML VIAL IV SCH ×2 (00:23→23:44)
[2017-07-19] MEDS: METOCLOPRAMIDE HCL 10 MG/2ML VIAL IV SCH ×5 (00:23→23:44)
[2017-07-19] MEDS: CEFTRIAXONE SOD 1 GM VIAL IV SCH ×3 (00:23→23:57)
[2017-07-19 00:34] VITALS: BP 109/56
[2017-07-19] MEDS: HYDROMORPHONE 1MG/1ML INJ IV PRN ×6 (03:09→23:57)
[2017-07-19 04:34] VITALS: BP 108/61
[2017-07-19] MEDS: METOPROLOL TARTRATE INJ 1 MG/ML VIAL IV SCH ×3 (06:05→21:59)
[2017-07-19] MEDS: METRONIDAZOLE 500MG/NS 100ML 100 ML IV SCH ×3 (06:05→21:45)
[2017-07-19 07:38] VITALS: BP 108/52
[2017-07-19] MEDS: TIOTROPIUM 18 MCG INH POWDER INH SCH (09:00)
[2017-07-19] MEDS: LEVOTHYROXINE SODIUM 100 MCG/VIAL IV SCH (10:25)
[2017-07-19] MEDS: ENOXAPARIN SOD INJ 60 MG/0.6 ML SYR SC SCH ×2 (10:25→20:47)
[2017-07-19] MEDS: ONDANSETRON HCL INJ 2 MG/ML VIAL IV PRN ×3 (10:25→19:35)
[2017-07-19 11:38] VITALS: BP 118/64
--- NOTE | 2017-07-19 11:38 | Progress Note ---
DATE: July 18, 2017 SUBJECTIVE: The patient reports no abdominal pain. Tolerating clear liquids. REVIEW OF SYSTEMS GENERAL: No fever or chills. CVS: No chest pain or palpitations. RESPIRATORY: No cough or expectoration. MEDICATIONS: Inpatient medications reviewed as per MAR. He is on metronidazole and ceftriaxone along with other medications. PHYSICAL EXAMINATION VITAL SIGNS: Temperature 99.6, pulse 92, respirations 22, blood pressure 119/55, and oxygen saturation 95% on room air. GENERAL: Not in any acute distress. HEENT: Moist mucous membranes. Anicteric sclerae. CVS: S1 and S2 regular. LUNGS: Bilaterally grossly clear. ABDOMEN: Soft. Ileostomy with fecal fluid and gas. Minimal bowel sounds in the upper quadrant. Left quadrant CARLOS drain is out. EXTREMITIES: Warm, no leg edema. LABS: WBC is down to 12.91, hemoglobin 9.8. The last blood work was done on July 16, 2017, when he received 2 units of blood transfusion after which his hemoglobin went up to 9.8 from 7.7. IMPRESSIONS 1. Small-bowel obstruction, resolved, after laparoscopic adenolysis and pelvic abscess drainage on July 12, 2017. 2. Leukocytosis, improving, on broad-spectrum intravenous antibiotic. 3. Anticoagulation for mechanical mitral valve. He is on Lovenox 60 mcg subcutaneous twice daily. PLAN: Postop care as per surgery. Full liquid diet. Diet is being advanced as tolerated. Wean off TPN when overall caloric intake meets the daily requirement. Job#: [id number]
[2017-07-19] MEDS ORDERED: SODIUM CHLORIDE 0.9% 250ML 250 ML ONE (13:13)
[2017-07-19 15:50] VITALS: BP 114/61
[2017-07-19 19:25] VITALS: BP 113/65
[2017-07-19] MEDS: CENTRAL TPN FORMULA 1 BAG IV SCH (19:57)
--- NOTE | 2017-07-19 21:26 | Progress Note ---
DATE: July 19, 2017 GI PROGRESS REPORT SUBJECTIVE: The patient reports no abdominal pain. He is still on a liquid diet. He still continues to be on TPN. REVIEW OF SYSTEMS: GENERAL: No fever or chills. CVS: No chest pain or palpitations. RESPIRATORY: No cough or expectoration. MEDICATIONS: TPN, Dilaudid 1 mg q.2 h. p.r.n., Zofran 4 mg q.4 h. p.r.n., metoclopramide 5 mg IV q.6 h., metronidazole 100 mL q.8 h., Lovenox 60 mg q.12 h., levothyroxine 50 mcg daily IV, ceftriaxone 1 gram q.24 h. IV, Spiriva 18 mcg inhalation daily, metoprolol 5 mg q.8 h. IV. PHYSICAL EXAMINATION VITAL SIGNS: Temperature 96.7, pulse 54, respirations 16, blood pressure 113/65, oxygen saturation 98% on 3 liters nasal cannula. GENERAL: Not in any acute distress. HEENT: Moist mucosa membrane. Anicteric sclerae. CVS: S1 and S2 regular with mechanical mitral valve click. LUNGS: Bilaterally grossly clear. ABDOMEN: Soft. Mild incisional tenderness. Ileostomy bag with gas and clear brownish fecal fluid. No rebound, rigidity or guarding. Positive bowel sounds, minimal in the upper quadrant. EXTREMITIES: Warm. No leg edema. LABORATORY DATA: WBC none today. IMPRESSION: 1. Small bowel obstruction, resolved, after laparoscopic adenolysis and pelvic abscess drainage on July 12, 2017. 1. Leukocytosis on broad-spectrum intravenous antibiotics. 2. Anticoagulation for mechanical mitral valve on Lovenox 60 mcg subcu twice daily. PLAN: Postop care per surgery. Diet can be advanced to solid food. Wean off TPN. Lovenox for mechanical mitral valve. No gross GI bleeding. Job#: [id number]
[2017-07-20 00:17] VITALS: BP 122/65
[2017-07-20 04:00] VITALS: BP 120/65
[2017-07-20] MEDS: HYDROMORPHONE 1MG/1ML INJ IV PRN ×4 (04:29→21:30)
[2017-07-20 05:27] LABS: BASOPHILS % 0.3 % (0.0-1.0); EOSINOPHILS # (AUTO) 0.2 (0.0-0.4); EOSINOPHILS % 3.7 % (0.0-6.0); HEMATOCRIT 28.1 % (38.2-49.6); LYMPHOCYTES % 15.1 % (18.0-39.1); MEAN CORPUSCULAR HEMOGLOBIN 29.8 pg (28-32); MONOCYTES # (AUTO) 0.6 (0.2-0.8); MONOCYTES % 8.9 % (4.4-11.3); NEUTROPHILS # (AUTO) 4.7 (2.1-6.9); NEUTROPHILS % 71.4 % (38.7-80.0); PLATELET COUNT 180 x10e3/uL (140-360); RED BLOOD COUNT 3.02 x10e6/uL (4.3-5.7); RED CELL DISTRIBUTION WIDTH 14.6 % (11.7-14.4)
[2017-07-20] MEDS: METOCLOPRAMIDE HCL 10 MG/2ML VIAL IV SCH ×3 (05:31→17:18)
[2017-07-20] MEDS: METRONIDAZOLE 500MG/NS 100ML 100 ML IV SCH ×3 (05:31→22:43)
[2017-07-20 05:41] LABS: ALANINE AMINOTRANSFERASE 13 IU/L (0-55); ALBUMIN 1.9 g/dL (3.5-5.0); ALBUMIN/GLOBULIN RATIO 0.5 (0.8-2.0); ALKALINE PHOSPHATASE 79 IU/L (40-150); ANION GAP 7.3 mmol/L (8-16); BLOOD UREA NITROGEN 16 mg/dL (7-26); BUN/CREATININE RATIO 23 (6-25); CALCIUM 8.2 mg/dL (8.4-10.2); CARBON DIOXIDE 20 mmol/L (22-29); CHLORIDE 109 mmol/L (98-107); EST GLOMERULAR FILTRATION RATE > 60 ML/MIN (60-); GLUCOSE 104 mg/dL (74-118); MAGNESIUM 1.6 MG/DL (1.3-2.1); PHOSPHORUS 2.9 MG/DL (2.3-4.7); POTASSIUM 4.3 mmol/L (3.5-5.1); SODIUM 132 mmol/L (136-145)
[2017-07-20] MEDS: METOPROLOL TARTRATE INJ 1 MG/ML VIAL IV SCH ×3 (05:43→22:43)
[2017-07-20] MEDS: TIOTROPIUM 18 MCG INH POWDER INH SCH (07:05)
[2017-07-20 08:01] VITALS: BP 103/53
[2017-07-20] MEDS: ENOXAPARIN SOD INJ 60 MG/0.6 ML SYR SC SCH ×2 (10:56→22:40)
[2017-07-20] MEDS: LEVOTHYROXINE SODIUM 100 MCG/VIAL IV SCH (10:56)
[2017-07-20 12:00] VITALS: BP 111/63
[2017-07-20 16:19] VITALS: BP 116/60
[2017-07-20] MEDS: CENTRAL TPN FORMULA 1 BAG IV SCH (20:10)
[2017-07-20 20:17] VITALS: BP 121/67
[2017-07-21] VITALS (7 sets, daily range): BP systolic 110–161; BP diastolic 57–86
[2017-07-21] MEDS: WATER STERILE 10 ML VIAL IV SCH (00:15)
[2017-07-21] MEDS: METOCLOPRAMIDE HCL 10 MG/2ML VIAL IV SCH ×3 (00:15→12:06)
[2017-07-21] MEDS: CEFTRIAXONE SOD 1 GM VIAL IV SCH ×2 (00:15)
[2017-07-21] MEDS: HYDROMORPHONE 1MG/1ML INJ IV PRN ×2 (03:38→21:50)
[2017-07-21] MEDS: METRONIDAZOLE 500MG/NS 100ML 100 ML IV SCH ×3 (05:43→21:50)
[2017-07-21] MEDS: METOPROLOL TARTRATE INJ 1 MG/ML VIAL IV SCH ×3 (06:07→21:50)
[2017-07-21] MEDS: TIOTROPIUM 18 MCG INH POWDER INH SCH (07:05)
[2017-07-21] MEDS: LEVOTHYROXINE SODIUM 100 MCG/VIAL IV SCH (09:45)
[2017-07-21] MEDS: ENOXAPARIN SOD INJ 60 MG/0.6 ML SYR SC SCH ×2 (09:45→21:23)
[2017-07-21] MEDS ORDERED: SODIUM CHLORIDE 0.9% 250ML 250 ML ONE (12:07)
[2017-07-21] MEDS: CENTRAL TPN FORMULA 1 BAG IV SCH (20:29)
[2017-07-22] VITALS: BP 119/58
[2017-07-22] MEDS: WATER STERILE 10 ML VIAL IV SCH ×2 (00:07→22:08)
[2017-07-22] MEDS: CEFTRIAXONE SOD 1 GM VIAL IV SCH (00:07)
[2017-07-22 04:00] VITALS: BP 122/88
[2017-07-22] MEDS: METRONIDAZOLE 500MG/NS 100ML 100 ML IV SCH ×3 (05:40→22:08)
[2017-07-22] MEDS: HYDROMORPHONE 1MG/1ML INJ IV PRN (06:04)
[2017-07-22] MEDS: METOPROLOL TARTRATE INJ 1 MG/ML VIAL IV SCH ×3 (06:05→22:08)
[2017-07-22 06:07] LABS: BASOPHILS % 0.4 % (0.0-1.0); EOSINOPHILS # (AUTO) 0.4 (0.0-0.4); EOSINOPHILS % 4.6 % (0.0-6.0); HEMATOCRIT 32.2 % (38.2-49.6); HEMOGLOBIN 10.5 g/dL (14.0-18.0); LYMPHOCYTES # (AUTO) 1.3 (1.0-3.2); LYMPHOCYTES % 16.6 % (18.0-39.1); MEAN CORPUSCULAR HEMOGLOBIN 29.8 pg (28-32); MEAN CORPUSCULAR HGB CONC 32.6 g/dL (31-35); MEAN CORPUSCULAR VOLUME 91.5 fL (81-99); MONOCYTES # (AUTO) 0.7 (0.2-0.8); MONOCYTES % 8.7 % (4.4-11.3); NEUTROPHILS # (AUTO) 5.6 (2.1-6.9); NEUTROPHILS % 68.7 % (38.7-80.0); PLATELET COUNT 246 x10e3/uL (140-360); RED BLOOD COUNT 3.52 x10e6/uL (4.3-5.7); RED CELL DISTRIBUTION WIDTH 14.5 % (11.7-14.4)
[2017-07-22 06:34] LABS: ALANINE AMINOTRANSFERASE 15 IU/L (0-55); ALBUMIN 2.3 g/dL (3.5-5.0); ALBUMIN/GLOBULIN RATIO 0.5 (0.8-2.0); ALKALINE PHOSPHATASE 89 IU/L (40-150); ANION GAP 11.3 mmol/L (8-16); BLOOD UREA NITROGEN 16 mg/dL (7-26); BUN/CREATININE RATIO 21 (6-25); CALCIUM 9.2 mg/dL (8.4-10.2); CARBON DIOXIDE 19 mmol/L (22-29); CHLORIDE 107 mmol/L (98-107); CREATININE, SERUM 0.75 mg/dL (0.72-1.25); EST GLOMERULAR FILTRATION RATE > 60 ML/MIN (60-); GLUCOSE 120 mg/dL (74-118); MAGNESIUM 1.8 MG/DL (1.3-2.1); POTASSIUM 4.3 mmol/L (3.5-5.1); SODIUM 133 mmol/L (136-145); TRIGLYCERIDES 82 MG/DL (0-149)
[2017-07-22 07:48] LABS: BAND NEUTROPHILS % (MANUAL) 3 %; EOSINOPHILS % (MANUAL) 5 % (0-7); LYMPHOCYTES % (MANUAL) 9 % (19-48); METAMYELOCYTES % (MANUAL) 2 % (0-0); MONOCYTES % (MANUAL) 9 % (3.4-9.0); NEUTROPHILS % (MANUAL) 67 % (40-74)
[2017-07-22 07:49] LABS: ANISOCYTOSIS SLIGHT; HYPOCHROMASIA SLIGHT; PLATELET ESTIMATE ADEQUATE; PLATELET MORPHOLOGY COMMENT FEW LARGE; POIKILOCYTOSIS SLIGHT; RBC MORPHOLOGY COMMENT NORMAL
[2017-07-22 07:50] VITALS: BP 130/69
[2017-07-22] MEDS: ENOXAPARIN SOD INJ 60 MG/0.6 ML SYR SC SCH ×2 (09:19→22:00)
[2017-07-22] MEDS: LEVOTHYROXINE SODIUM 100 MCG/VIAL IV SCH (09:19)
[2017-07-22] MEDS: TIOTROPIUM 18 MCG INH POWDER INH SCH (11:20)
[2017-07-22 12:29] VITALS: BP 121/65
[2017-07-22] MEDS ORDERED: SODIUM CHLORIDE 0.9% 250ML 250 ML ONE (14:15)
[2017-07-22 16:22] VITALS: BP 112/82
[2017-07-22 19:35] VITALS: BP 131/74
[2017-07-22] MEDS ORDERED: CENTRAL TPN FORMULA 1 BAG IV SCH (20:00)
--- NOTE | 2017-07-22 22:24 | Progress Note ---
DATE: SUBJECTIVE: No abdominal pain. Tolerating oral feeds. No nausea, vomiting. He is on soft diet. REVIEW OF SYSTEMS GENERAL: No fever or chills. RESPIRATORY: No cough or expectoration. CVS: No chest pain, palpitations. MEDICATIONS: Reviewed as per OCT. He is on intravenous metronidazole and along with other medication. PHYSICAL EXAMINATION VITAL SIGNS: Temperature 96.7, pulse 87, respirations 21-23, blood pressure 131/74, oxygen saturation 96% on 3 L of nasal cannula. GENERAL: Not in any acute distress. HEENT: Moist mucous membrane. Anicteric sclerae. CVS: S1/S2 regular with the prosthetic mitral valve click. LUNGS: Bilaterally grossly clear. ABDOMEN: Soft. Mild incisional tenderness. No rebound, rigidity or guarding. Ileostomy with brown fecal fluid and gas. EXTREMITIES: Warm. No leg edema. LAB: WBC 8.07, hemoglobin 10.5, hematocrit 32.2, MCV 91.5, platelet count 246,000. Sodium 143, potassium 4.3, chloride 107, bicarb 19, BUN 16, creatinine 0.75. Liver tests normal. Albumin 2.3. IMPRESSIONS 1. Small bowel obstruction, resolved, after laparoscopic adenolysis and pelvic abscess drainage on July 12, 2017. 2. Leukocytosis has also resolved. 3. Anticoagulation for mechanical mitral valve. Patient is on Lovenox 60 mg subcutaneous b.i.d. PLAN: Patient tolerating solid food. TPN to be weaned off. Lovenox for mechanical mitral valve. No gross GI bleeding. Patient can be discharged from GI standpoint. Job#: [id number]
[2017-07-23 00:28] VITALS: BP 126/62
[2017-07-23] MEDS: HYDROMORPHONE 1MG/1ML INJ IV PRN (05:22)
[2017-07-23 05:56] VITALS: BP 120/82
[2017-07-23] MEDS: METRONIDAZOLE 500MG/NS 100ML 100 ML IV SCH ×3 (06:05→21:38)
[2017-07-23] MEDS: METOPROLOL TARTRATE INJ 1 MG/ML VIAL IV SCH ×3 (06:05→21:38)
[2017-07-23 07:41] VITALS: BP 113/63
[2017-07-23] MEDS: LEVOTHYROXINE SODIUM 100 MCG/VIAL IV SCH (08:51)
[2017-07-23] MEDS: ENOXAPARIN SOD INJ 60 MG/0.6 ML SYR SC SCH ×2 (08:51→20:51)
[2017-07-23 12:42] VITALS: BP 110/54
[2017-07-23 20:51] VITALS: BP 110/54
[2017-07-23] MEDS: WATER STERILE 10 ML VIAL IV SCH (23:10)
--- NOTE | 2017-07-23 23:40 | Progress Note ---
DATE: July 23, 2017 GI PROGRESS REPORT SUBJECTIVE: Patient is tolerating oral feeds. He is off TPN. Denies any abdominal pain. REVIEW OF SYSTEMS: GENERAL: No fever or chills. RESPIRATORY: No cough or expectoration. CVS: No chest pain, palpitation. MEDICATIONS: Reviewed, as per MAR. He is on IV metronidazole. He is also getting Lovenox 60 mg subcutaneously twice daily along with other medications. PHYSICAL EXAMINATION: VITAL SIGNS: Temperature 97.1, pulse is 93, respiration 14, blood pressure 110/54, oxygen saturation 94% on room air. GENERAL: Not in any acute distress. HEENT: Moist mucous membranes. Anicteric sclerae. CVS: S1 and S2 regular with a mitral valve click. LUNGS: Bilaterally grossly clear. ABDOMEN: Soft. Midline laparotomy scar with ciarra. Ileostomy with light brown fecal fluid with gas. Bowel sounds present. EXTREMITIES: Warm. No leg edema. LABS: None today. IMPRESSION: 1. Small-bowel obstruction, resolved after laparoscopic adhenolysis and pelvic abscess drainage on July 12, 2017. 2. History of ulcerative colitis. 3. Leukocytosis, resolved, on intravenous metronidazole. 4. Anticoagulation for mechanical mitral valve. Patient is on Lovenox 60 mg subcutaneously twice daily. PLAN: Continue oral feeds. Patient is stooling, bowel function has been maintained ever since he has had laparotomy with adhenolysis and pelvic abscess drainage. Continue Lovenox for mechanical mitral valve. No gross gastrointestinal bleeding. Patient can be discharged from gastroenterology standpoint. Job#: [id number]
[2017-07-23 23:49] VITALS: BP 127/76
[2017-07-24] MEDS: HYDROMORPHONE 1MG/1ML INJ IV PRN ×2 (03:00→14:15)
[2017-07-24 04:50] VITALS: BP 135/75
[2017-07-24 06:06] LABS: BASOPHILS # (AUTO) 0.1 (0.0-0.1); BASOPHILS % 0.6 % (0.0-1.0); EOSINOPHILS # (AUTO) 0.3 (0.0-0.4); EOSINOPHILS % 2.6 % (0.0-6.0); HEMOGLOBIN 11.8 g/dL (14.0-18.0); LYMPHOCYTES % 18.5 % (18.0-39.1); MEAN CORPUSCULAR HEMOGLOBIN 29.9 pg (28-32); MEAN CORPUSCULAR HGB CONC 32.8 g/dL (31-35); MEAN CORPUSCULAR VOLUME 91.4 fL (81-99); MONOCYTES # (AUTO) 0.9 (0.2-0.8); MONOCYTES % 8.6 % (4.4-11.3); NEUTROPHILS # (AUTO) 7.4 (2.1-6.9); NEUTROPHILS % 68.4 % (38.7-80.0); PLATELET COUNT 320 x10e3/uL (140-360); RED BLOOD COUNT 3.94 x10e6/uL (4.3-5.7); RED CELL DISTRIBUTION WIDTH 15.1 % (11.7-14.4)
[2017-07-24] MEDS: METRONIDAZOLE 500MG/NS 100ML 100 ML IV SCH ×2 (06:08→14:00)
[2017-07-24] MEDS: METOPROLOL TARTRATE INJ 1 MG/ML VIAL IV SCH ×2 (06:09→14:15)
[2017-07-24 06:28] LABS: ALANINE AMINOTRANSFERASE 19 IU/L (0-55); ALBUMIN 2.7 g/dL (3.5-5.0); ALBUMIN/GLOBULIN RATIO 0.5 (0.8-2.0); ALKALINE PHOSPHATASE 115 IU/L (40-150); ANION GAP 9.1 mmol/L (8-16); BLOOD UREA NITROGEN 27 mg/dL (7-26); BUN/CREATININE RATIO 30 (6-25); CALCIUM 9.7 mg/dL (8.4-10.2); CARBON DIOXIDE 19 mmol/L (22-29); CHLORIDE 108 mmol/L (98-107); CREATININE, SERUM 0.91 mg/dL (0.72-1.25); EST GLOMERULAR FILTRATION RATE > 60 ML/MIN (60-); GLUCOSE 89 mg/dL (74-118); POTASSIUM 5.1 mmol/L (3.5-5.1); SODIUM 131 mmol/L (136-145)
[2017-07-24 08:34] VITALS: BP 118/71
[2017-07-24] MEDS: TIOTROPIUM 18 MCG INH POWDER INH SCH (09:08)
[2017-07-24] MEDS: LEVOTHYROXINE SODIUM 100 MCG/VIAL IV SCH (10:08)
[2017-07-24] MEDS: ENOXAPARIN SOD INJ 60 MG/0.6 ML SYR SC SCH (10:08)
[2017-07-24 12:33] VITALS: BP 136/76
== END 2017-07-24 15:27 | DRG 853 ==
LOC: ER 07:14 → ERHOLD 10:28 → UNDOADMIN 10:28 → ERHOLD 10:29 → ICU 15:50 → ERHOLD 15:50 → IMCU 07-17 16:30
PROVIDERS: ADMIT Internal Medicine; ATTEND Internal Medicine
PROC: 3E0 Administration, Physiological Systems and Anatomical Regions, Introduction (ICD-10-PCS; principal; 2017-07-04)
PROC: 02HV33Z Insertion of Infusion Device into Superior Vena Cava, Percutaneous Approach (ICD-10-PCS; 2017-07-11)
PROC: 0WQFXZ2 Repair Abdominal Wall, Stoma, External Approach (ICD-10-PCS; 2017-07-12)
PROC: 0D1B0Z4 Bypass Ileum to Cutaneous, Open Approach (ICD-10-PCS; 2017-07-12)
PROC: 0WJF4ZZ Inspection of Abdominal Wall, Percutaneous Endoscopic Approach (ICD-10-PCS; 2017-07-12)
PROC: 0W9J0ZX Drainage of Pelvic Cavity, Open Approach, Diagnostic (ICD-10-PCS; 2017-07-12)
PROC: 0DBB0ZZ Excision of Ileum, Open Approach (ICD-10-PCS; 2017-07-12)
DX: A41.9 Sepsis, unspecified organism (principal); K65.1 Peritoneal abscess; K91.30 Postprocedural intestinal obstruction, unspecified as to partial versus complete; E87.8 Other disorders of electrolyte and fluid balance, not elsewhere classified; K56.7 Ileus, unspecified; K94.19 Other complications of enterostomy; N39.0 Urinary tract infection, site not specified; E03.9 Hypothyroidism, unspecified; Z79.52 Long term (current) use of systemic steroids; Z99.3 Dependence on wheelchair; Z95.2 Presence of prosthetic heart valve; I10 Essential (primary) hypertension; Z79.01 Long term (current) use of anticoagulants
CPT/HCPCS: 36415; 36430; 36569; 71010; 74000; 74176; 74470; 80048; 80053; 81001; 82550; 82553; 82607; 82948; 83605; 83735; 83880; 84100; 84134; 84443; 84478; 84484; 84630; 85025; 85610; 85730; 86850; 86900; 86920; 87040; 87086; 87493; 88305; 88307; 93005; 93971; 94640; 96360; 96366; 96367; 96372; 96375; 96376; 97139; 99285; J0696; J1170; J1650; J1940; J1956; J2001; J2270; J2405; J2765; J3370; J3411; J3430; J3480; J7030; J7040; J7042; J7050; P9016; P9017